=== PATIENT | female | born 1980 | race Caucasian/White ===

== ENCOUNTER → 2018-08-17 | Emergency (ER) | payer BC ==
[~2018-08-17] VITALS: Ht 157.5 cm; Wt 127.0 kg
[~2018-08-17] MED LIST: AMLO10TA PO; CPR500T PO; DOCU100C37 PO; HYDR-34 PO; HYDR-4226 PO; HYDR2TAB30 PO; HYDROcodone/APAP 5 MG/325 MG (LORTAB) TAB PO ONE; IBUP-1773 PO; LEVO500T2 PO; LISI10TA2 PO; ONDA4TAB8 PO; OXYC1TAB87 PO; PHEN-826 PO; PHEN100T17 PO; SIME80TA16 PO; SPIR50TA27 PO; amLODIPine 10 MG (NORVASC) TAB PO ONE
--- NOTE | 2018-08-17 15:03 | ED Lower Extremity ---
General Chief Complaint: Lower Extremity Stated Complaint: LFT ANKLE PAIN Nursing Triage Note: pt missed a step going down the stairs and fell et her left ankle twisted and is very painful, swelling noted. Nursing Sepsis Screen: No Definite Risk Source: patient Exam Limitations: no limitations History of Present Illness Date Seen by Provider: Aug 17, 2018 Time Seen by Provider: 15:01 Initial Comments To ER with reports of having missed a step going down the stairs, twisted her ankle and now has swelling and significant pain over the lateral malleolus. This occurred just prior to arrival. She is quite hypertensive on arrival but has not had her daily blood pressure medications yet. Onset: just prior to arrival Severity: moderate Pain/Injury Location: left ankle Method of Injury: fell Modifying Factors: Worse With Movement Allergies and Home Medications Allergies Coded Allergies: codeine (Verified Allergy, Unknown, 10/08/07) Home Medications Amlodipine Besylate 10 Mg Tablet, 10 MG PO DAILY, (Reported) Docusate Sodium 100 Mg Capsule, 100 MG PO BID PRN for CONSTIPATION Prescribed by: ED CHOWDHURY on 01/06/15 1608 Hydromorphone HCl 2 Mg Tablet, 2 MG PO Q6H Prescribed by: CORAZON SÁNCHEZ on 01/18/15 1238 Ibuprofen 600 Mg Tablet, 600 MG PO Q6H PRN for PAIN Prescribed by: ED CHOWDHURY on 01/06/15 1608 Levofloxacin 500 Mg Tablet, 500 MG PO DAILY Prescribed by: CORAZON SÁNCHEZ on 01/18/15 1028 Lisinopril 10 Mg Tablet, 10 MG PO DAILY, (Reported) Ondansetron 4 Mg Tab.rapdis, 4 MG PO TID Prescribed by: CORAZON SÁNCHEZ on 01/18/15 1255 Phenazopyridine HCl 100 Mg Tablet, 100 MG PO TIDPC Prescribed by: CORAZON SÁNCHEZ on 01/18/15 1028 Simethicone 80 Mg Tab.chew, 40 MG PO TID PRN for INDIGESTION Prescribed by: ED CHOWDHURY on 01/06/15 1608 Spironolactone 50 Mg Tablet, 50 MG PO DAILY, (Reported) Patient Home Medication List Home Medication List Reviewed: Yes Review of Systems Constitutional: see HPI EENTM: see HPI Respiratory: no symptoms reported Cardiovascular: no symptoms reported Genitourinary: no symptoms reported Musculoskeletal: see HPI Skin: no symptoms reported Psychiatric/Neurological: No Symptoms Reported Past Rvtsamt-Tccyaq-Uhywtd Hx Patient Social History Alcohol Use: Denies Use Recreational Drug Use: No Type Used: Cigarettes Recent Foreign Travel: No Contact w/Someone Who Travel: No Recent Infectious Disease Expo: No Immunizations Up To Date Tetanus Booster (TDap): More than 5yrs Past Medical History Surgeries: Yes (KNEE SCOPE, ) Hysterectomy Respiratory: No Cardiac: No Neurological: No Reproductive Disorders: No (AUB) Sexually Transmitted Disease: No HIV/AIDS: No Gastrointestinal: No Musculoskeletal: No Endocrine: No Cancer: No Psychosocial: No Integumentary: No Blood Disorders: No Adverse Reaction/Blood Tranf: No Family Medical History Asthma G8 BROTHER Cataracts GRANDPARENTS Diabetes mellitus GRANDPARENTS FH: cancer GRANDPARENTS (LIVER, BREAST CA) Hypertension 19 MOTHER Heart Disease, Cancer Physical Exam Vital Signs Vital Signs - First Documented 08/17/18 14:49 Temp 98.1 Pulse 93 Resp 20 B/P (MAP) 236/136 (169) Pulse Ox 100 Capillary Refill : Less Than 3 Seconds Height, Weight, BMI Height: 5'2.00" Weight: 280lbs. 0.0oz. 127.351018ma; BMI Method:Stated General Appearance: WD/WN, no apparent distress HEENT: PERRL/EOMI, normal ENT inspection Neck: non-tender, full range of motion Respiratory: no respiratory distress, no accessory muscle use Hips: bilateral hip non-tender, bilateral hip normal inspection, bilateral hip normal range of motion Legs: bilateral leg non-tender, bilateral leg normal inspection, bilateral leg normal range of motion Knees: bilateral knee non-tender, bilateral knee normal inspection, bilateral knee normal range of motion Ankles: left ankle pain, left ankle soft tissue tenderness, left ankle swelling Feet: bilateral foot non-tender, bilateral foot normal inspection Neurologic/Psychiatric: alert, normal mood/affect, oriented x 3 Skin: normal color, warm/dry Progress/Results/Core Measures Results/Orders My Orders Orders - CORI STOVALL APRN Hydrocodone/Apap 5/325 Tablet (Lortab 5 (08/17/18 15:00) Amlodipine Tablet (Norvasc Tablet) (08/17/18 15:00) Ankle, Left, 3 Views (08/17/18 14:59) Tibia/Fibula, Left, 2 Views (08/17/18 14:59) Medications Given in ED Current Medications Medications Dose Ordered Sig/June Route Start Time Stop Time Status Last Admin Dose Admin Acetaminophen/ Hydrocodone Bitart 1 tab ONCE ONCE PO 08/17/18 15:00 08/17/18 15:01 DC 08/17/18 15:05 1 TAB Amlodipine Besylate 10 mg ONCE ONCE PO 08/17/18 15:00 08/17/18 15:01 DC 08/17/18 15:05 10 MG Vital Signs/I&O 08/17/18 14:49 Temp 98.1 Pulse 93 Resp 20 B/P (MAP) 236/136 (169) Pulse Ox 100 Blood Pressure Mean: 169 Departure Impression Primary Impression: Avulsion fracture of ankle Qualified Codes: S82.892A - Other fracture of left lower leg, initial encounter for closed fracture Disposition: HOME, SELF-CARE Condition: Stable Departure-Patient Inst. Decision time for Depature: 15:39 Referrals: ALLYSON WALL MD (PCP/Family) Primary Care Physician Patient Instructions: Ankle Fracture, Ankle Sprain (DC) Add. Discharge Instructions: 1. Wear the walking boot until you are released by primary care which would likely be about 2-3 weeks. Elevate as much as possible for the next 48 hours to help reduce swelling and subsequent pain. Wear the walking boot when you're up and about. Pain medication as directed. Ice pack to the area will also help with pain and swelling. All discharge instructions reviewed with patient and/or family. Voiced understanding. Scripts Hydrocodone/Acetaminophen ([place] 5-325 Tablet) 1 Each Tablet 1 EACH PO Q6H PRN for PAIN-MODERATE MDD 10, #14 TAB Prov: CORI STOVALL APRN 08/17/18 Work/School Note: Work Release Form Date Seen in the Emergency Department: Aug 17, 2018 Return to Work: Aug 19, 2018 Other Restrictions Listed Below: Walking boot must be worn while at work until released CORI STOVALL APRN Aug 17, 2018 15:03
[2018-08-17 15:58] VITALS: BP 197/102
--- NOTE | 2018-08-17 16:04 | Diagnostic Imaging Report ---
INDICATION: Injury, ankle pain. EXAMINATION: Left ankle at 3:32 p.m. Three views were obtained. COMPARISON: There are no prior studies available for comparison. FINDINGS: On the AP view there is a small, 1 x 4 mm, avulsion fracture of the tip of the lateral malleolus. There is considerable soft tissue edema in this area as well. No other fracture or acute bony abnormality is noted. The ankle mortise is not widened and the talar dome is smooth. IMPRESSION: 1. There is a small avulsion fracture along the inferior margin of the lateral malleolus. There is also considerable soft tissue edema in this area. 2. There is no acute bony abnormality noted otherwise. Dictated by: Dictated on workstation # [id number]
--- NOTE | 2018-08-17 16:05 | Diagnostic Imaging Report ---
INDICATION: Leg pain. EXAMINATION: Left tibia and fibula. AP and lateral views were obtained. FINDINGS: As noted on the ankle exam performed in conjunction with this study, there is a small avulsion fracture along the inferior margin of the lateral malleolus of the distal tibia. There is considerable soft tissue edema in this area. No other fracture or acute bony abnormality is noted. The knee and ankle joints are fairly well maintained. IMPRESSION: There is a small acute avulsion fracture along the inferior margin of the lateral malleolus of the distal tibia. There is no acute bony abnormality noted otherwise. Dictated by: Dictated on workstation # [id number]
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
== END | disposition home or self-care (01) ==
LOC: EDUNIT# 14:37 → ER 14:39
DX: S82.62XA Displaced fracture of lateral malleolus of left fibula, initial encounter for closed fracture (principal); Z88.5 Allergy status to narcotic agent; Z90.710 Acquired absence of both cervix and uterus; Z80.3 Family history of malignant neoplasm of breast; Z80.0 Family history of malignant neoplasm of digestive organs; W10.8XXA Fall (on) (from) other stairs and steps, initial encounter; X50.1XXA Overexertion from prolonged static or awkward postures, initial encounter
CPT/HCPCS: 73590; 73610

== ENCOUNTER → 2018-09-17 | Outpatient (CLI) | payer BC ==
[~2018-09-17] MED LIST changes: -HYDROcodone/APAP 5 MG/325 MG (LORTAB) TAB PO ONE; -amLODIPine 10 MG (NORVASC) TAB PO ONE
--- NOTE | 2018-09-17 12:58 | Diagnostic Imaging Report ---
EXAMINATION: Left foot. INDICATION: Fibular fracture. Three views were obtained. FINDINGS: The prior exam of 08/17/2018 noted a small avulsion fracture along the inferior aspect of the lateral malleolus. That fracture is not well visualized on this study. There is no fracture, dislocation, or acute bony abnormality of the foot itself. The Lisfranc joint is well maintained. There is a small 5 mm linear metallic foreign body in the soft tissues along the plantar aspect of the proximal phalanx of the great toe. The soft tissues are otherwise unremarkable. IMPRESSION: 1. The fracture of the distal fibula seen previously is not well visualized on this exam. 2. There is no acute bony abnormality of the foot. 3. There is a small linear foreign body along the plantar aspect of the proximal phalanx of the great toe. Dictated by: Dictated on workstation # [id number]
== END ==
LOC: RAD 11:03
PROVIDERS: ATTEND Nurse Practitioner Family
DX: S90.452A Superficial foreign body, left great toe, initial encounter (principal)
CPT/HCPCS: 73630

== ENCOUNTER → 2019-02-24 | Outpatient (CLI) | payer BC ==
--- NOTE | 2019-02-24 09:43 | Diagnostic Imaging Report ---
INDICATION: RIGHT UPPER QUADRANT ABDOMINAL PAIN TECHNIQUE: Multiple grayscale sonographic images were obtained of the right upper quadrant of the abdomen. CORRELATION STUDY: None FINDINGS: LIVER: There is uniform echotexture within the visualized portions of the liver. Liver length 18 cm. GALLBLADDER: The gallbladder demonstrates no definitive shadowing gallstones. No abnormal gallbladder wall thickening or pericholecystic fluid. COMMON BILE DUCT: Nondilated at 3 mm. PANCREAS: Visualized portions appearing unremarkable. RIGHT KIDNEY: Measures 12.1 x 4.8 x 6.1 cm. No hydronephrosis. AORTA/IVC: Not well visualized. OTHER: None. IMPRESSION: 1. Negative appearing right upper quadrant abdominal ultrasound. Dictated by: Dictated on workstation # [id number]
== END ==
LOC: RAD 08:46
PROVIDERS: ATTEND Surgery
DX: R10.11 Right upper quadrant pain (principal)
CPT/HCPCS: 76705

== ENCOUNTER 2019-03-01 13:04 | Emergency (ER) | payer BC ==
[~2019-03-01] VITALS: Ht 160 cm; Wt 132.9 kg
--- NOTE | 2019-03-01 13:33 | ED GU-Female ---
General Chief Complaint: Abdominal/GI Problems Stated Complaint: BILAT FLANK PAIN Nursing Triage Note: Pt ambulates to [facility] with C/O right lower abd/flank pain that started a few days ago and has gotten worse. Pt reports she was diagnosed with UTI last week and has been taking Abx for that. Pt states pain was on both sides of abd/flank but has now isolated to the right side. Pt reports taking ibuprofen for the pain. Nursing Sepsis Screen: No Definite Risk Source: patient Exam Limitations: no limitations History of Present Illness Date Seen by Provider: Mar 01, 2019 Time Seen by Provider: 13:32 Initial Comments 38-year-old female patient presents with complaints of right lower abdominal pain radiating into the right flank and right low back. Patient reports being diagnosed with a urinary tract infection at [facility] urgent care 2 weeks ago and was given antibiotics. Patient reports completing the antibiotics, but was told to start a second round of antibiotics earlier this week. Patient denies improvement in symptoms. Denies any urinary symptoms including dysuria, frequency, or hematuria. Per EMR patient also had a gallbladder u/s on 02/24/19 which was negative (ordered by Dr. Sullivan). Timing/Duration: getting worse, other (2 weeks onset, worse in the last 7 days.) Severity/Quality: aching, sharp Location: RLQ Radiation: back, right flank Activities at Onset: none Prior Genitourinary Problems: none Allergies and Home Medications Allergies Coded Allergies: codeine (Verified Allergy, Unknown, 10/08/07) Home Medications Amlodipine Besylate 10 Mg Tablet, 10 MG PO DAILY, (Reported) Docusate Sodium 100 Mg Capsule, 100 MG PO BID PRN for CONSTIPATION Prescribed by: ED CHOWDHURY on 01/06/15 1608 Hydrocodone Bit/Acetaminophen 1 Tab Tab, 1 EACH PO Q6H PRN for PAIN-MODERATE Prescribed by: VILMA RODRIGUEZ on 03/01/19 1537 Hydrocodone/Acetaminophen 1 Each Tablet, 1 EACH PO Q6H PRN for PAIN-MODERATE Prescribed by: CORI STOVALL on 08/17/18 1540 Hydromorphone HCl 2 Mg Tablet, 2 MG PO Q6H Prescribed by: CORAZON SÁNCHEZ on 01/18/15 1238 Ibuprofen 600 Mg Tablet, 600 MG PO Q6H PRN for PAIN Prescribed by: ED CHOWDHURY on 01/06/15 1608 Levofloxacin 500 Mg Tablet, 500 MG PO DAILY Prescribed by: CORAZON SÁNCHEZ on 01/18/15 1028 Lisinopril 10 Mg Tablet, 10 MG PO DAILY, (Reported) Ondansetron 4 Mg Tab.rapdis, 4 MG PO TID Prescribed by: CORAZON SÁNCHEZ on 01/18/15 1255 Phenazopyridine HCl 100 Mg Tablet, 100 MG PO TIDPC Prescribed by: CORAZON SÁNCHEZ on 01/18/15 1028 Phenazopyridine HCl 200 Mg Tablet, 1 TAB PO Q8H PRN for pain Prescribed by: VILMA RODRIGUEZ on 03/01/19 1538 Simethicone 80 Mg Tab.chew, 40 MG PO TID PRN for INDIGESTION Prescribed by: ED CHOWDHURY on 01/06/15 1608 Spironolactone 50 Mg Tablet, 50 MG PO DAILY, (Reported) Patient Home Medication List Home Medication List Reviewed: Yes Review of Systems Review of Systems Constitutional: No chills, No fever; malaise EENTM: no symptoms reported Respiratory: No cough, No phlegm, No short of breath, No wheezing Cardiovascular: No chest pain, No palpitations, No syncope Gastrointestinal: see HPI, abdominal pain (RLQ); No constipation, No diarrhea, No hematemesis, No heartburn, No jaundice, No loss of appetite, No melena, No nausea, No vomiting Genitourinary: see HPI; denies burning, denies discharge, denies dysuria, denies frequency; flank pain (right flank); denies hematuria Musculoskeletal: back pain (right low back pain) Skin: no symptoms reported Psychiatric/Neurological: No Symptoms Reported All Other Systemes Reviewed Negative Unless Noted: Yes (Negative excepted noted.) Past Bdtgkxs-Cdnkax-Bljhel Hx Past Med/Social Hx: Reviewed Nursing Past Med/Soc Hx Patient Social History Alcohol Use: Denies Use Recreational Drug Use: No Type Used: Cigarettes Recent Foreign Travel: No Contact w/Someone Who Travel: No Recent Infectious Disease Expo: No Recent Hopitalizations: No Physical Abuse: No Sexual Abuse: No Mistreated: No Fear: No Immunizations Up To Date Tetanus Booster (TDap): More than 5yrs Seasonal Allergies Seasonal Allergies: No Past Medical History Surgeries: Yes (KNEE SCOPE, ) Section, Hysterectomy Respiratory: No Cardiac: Yes Hypertension Neurological: No Reproductive Disorders: No (AUB) [employer]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 Sexually Transmitted Disease: No HIV/AIDS: No Genitourinary: No Gastrointestinal: No Musculoskeletal: No Endocrine: No Cancer: No Psychosocial: No Integumentary: No Blood Disorders: No Adverse Reaction/Blood Tranf: No Family Medical History Reviewed Nursing Family Hx Asthma G8 BROTHER Cataracts GRANDPARENTS Diabetes mellitus GRANDPARENTS FH: cancer GRANDPARENTS (LIVER, BREAST CA) Hypertension 19 MOTHER Heart Disease, Cancer Physical Exam Vital Signs Vital Signs - First Documented 03/01/19 13:10 Temp 36.9 Pulse 95 Resp 18 B/P (MAP) 186/106 (132) Pulse Ox 99 O2 Delivery Room Air Capillary Refill : Less Than 3 Seconds Height, Weight, BMI Height: 5'2.00" Weight: 280lbs. 0.0oz. [id number]; 51.00 BMI Method:Stated General Appearance: WD/WN, no apparent distress HEENT: PERRL/EOMI, pharynx normal Neck: supple, normal inspection Cardiovascular: normal peripheral pulses, regular rate, rhythm, no edema, no gallop, no murmur Respiratory: lungs clear, normal breath sounds, no respiratory distress, no accessory muscle use Gastrointestinal: normal bowel sounds, soft, no organomegaly, no pulsatile mass; No distended; guarding (right lower quadrant and right flank); No rebound; tenderness (right lower quadrant and right flank) Back: normal inspection, CVA tenderness (R) (weak positive CVA tenderness), CVA tenderness (L) (weak positive CVA tenderness) Extremities: no pedal edema, no calf tenderness, normal capillary refill Neurologic/Psychiatric: alert, normal mood/affect, oriented x 3 Skin: normal color, warm/dry Progress/Results/Core Measures Suspected Sepsis Recent Fever Within 48 Hours: No Infection Criteria Present: None New/Unexplained Altered Menta: No Sepsis Screen: No Definite Risk SIRS Temperature: Pulse: 95 Respiratory Rate: 18 Laboratory Tests 03/01/19 13:26: White Blood Count 14.6H Blood Pressure 186 /106 Mean: 132 Laboratory Tests 03/01/19 13:26: Creatinine 1.00, Platelet Count 300, Total Bilirubin 0.6 Results/Orders Lab Results Laboratory Tests Test 03/01/19 13:26 Range/Units White Blood Count 14.6 H 4.3-11.0 10^3/uL Red Blood Count 4.65 4.35-5.85 10^6/uL Hemoglobin 15.0 11.5-16.0 G/DL Hematocrit 43 35-52 % Mean Corpuscular Volume 93 80-99 FL Mean Corpuscular Hemoglobin 32 25-34 PG Mean Corpuscular Hemoglobin Concent 35 32-36 G/DL Red Cell Distribution Width 13.9 10.0-14.5 % Platelet Count 300 130-400 10^3/uL Mean Platelet Volume 10.7 H 7.4-10.4 FL Neutrophils (%) (Auto) 64 42-75 % Lymphocytes (%) (Auto) 28 12-44 % Monocytes (%) (Auto) 6 0-12 % Eosinophils (%) (Auto) 1 0-10 % Basophils (%) (Auto) 0 0-10 % Neutrophils # (Auto) 9.4 H 1.8-7.8 X 10^3 Lymphocytes # (Auto) 4.1 H 1.0-4.0 X 10^3 Monocytes # (Auto) 0.8 0.0-1.0 X 10^3 Eosinophils # (Auto) 0.2 0.0-0.3 10^3/uL Basophils # (Auto) 0.1 0.0-0.1 10^3/uL Neutrophils % (Manual) 66 % Lymphocytes % (Manual) 31 % Monocytes % (Manual) 3 % Blood Morphology Comment NORMAL Urine Color YELLOW Urine Clarity SLIGHTLY CLOUDY Urine pH 6 5-9 Urine Specific Pelican 1.010 L 1.016-1.022 Urine Protein 2+ H NEGATIVE Urine Glucose (UA) NEGATIVE NEGATIVE Urine Ketones NEGATIVE NEGATIVE Urine Nitrite POSITIVE H NEGATIVE Urine Bilirubin 1+ H NEGATIVE Urine Urobilinogen 1 NORMAL MG/DL Urine Leukocyte Esterase 1+ H NEGATIVE Urine RBC (Auto) 1+ H NEGATIVE Urine RBC 2-5 H /HPF Urine WBC 2-5 /HPF Urine Squamous Epithelial Cells 25-50 H /HPF Urine Crystals NONE /LPF Urine Bacteria FEW H /HPF Urine Casts NONE /LPF Urine Mucus NEGATIVE /LPF Urine Culture Indicated YES Sodium Level 137 135-145 MMOL/L Potassium Level 3.5 L 3.6-5.0 MMOL/L Chloride Level 101 98-107 MMOL/L Carbon Dioxide Level 27 21-32 MMOL/L Anion Gap 9 5-14 MMOL/L Blood Urea Nitrogen 13 7-18 MG/DL Creatinine 1.00 0.60-1.30 MG/DL Estimat Glomerular Filtration Rate > 60 BUN/Creatinine Ratio 13 Glucose Level 100 70-105 MG/DL Calcium Level 9.4 8.5-10.1 MG/DL Corrected Calcium 9.2 8.5-10.1 MG/DL Total Bilirubin 0.6 0.1-1.0 MG/DL Aspartate Amino Transf (AST/SGOT) 21 5-34 U/L Alanine Aminotransferase (ALT/SGPT) 38 0-55 U/L Alkaline Phosphatase 87 40-136 U/L C-Reactive Protein High Sensitivity 0.27 0.00-0.50 MG/DL Total Protein 7.4 6.4-8.2 GM/DL Albumin 4.3 3.2-4.5 GM/DL Lipase 14 8-78 U/L My Orders Orders - VILMA RODRIGUEZ Ed Iv/Invasive Line Start (03/01/19 13:19) Cbc With Automated Diff (03/01/19 13:19) Comprehensive Metabolic Panel (03/01/19 13:19) Hs C Reactive Protein (03/01/19 13:19) Lipase (03/01/19 13:19) Ua Culture If Indicated (03/01/19 13:19) Manual Differential (03/01/19 13:26) Urine Culture (03/01/19 13:26) Ct Abd/Pelvis Wo(Kidney Stone) (03/01/19 13:57) Ed Iv/Invasive Line Start (03/01/19 13:57) Ns Iv 1000 Ml (Sodium Chloride 0.9%) (03/01/19 13:57) Fentanyl Injection (Sublimaze Injection (03/01/19 13:57) Ceftriaxone For Iv Use (Rocephin For I (03/01/19 15:00) Fentanyl Injection (Sublimaze Injection (03/01/19 15:04) Medications Given in ED Current Medications Medications Dose Ordered Sig/June Route Start Time Stop Time Status Last Admin Dose Admin Ceftriaxone Sodium 1000 mg/ Sterile Water 10 ml @ 200 mls/hr ONCE ONCE IV 03/01/19 15:00 03/01/19 15:02 DC 03/01/19 15:04 200 MLS/HR Sodium Chloride 1,000 ml @ 0 mls/hr Q0M ONCE IV 03/01/19 13:57 03/01/19 14:01 DC 03/01/19 14:07 0 MLS/HR Vital Signs/I&O 03/01/19 03/01/19 13:10 15:48 Temp 36.9 36.9 Pulse 95 95 Resp 18 18 B/P (MAP) 186/106 (132) 173/100 (132) Pulse Ox 99 99 O2 Delivery Room Air Room Air Capillary Refill : Less Than 3 Seconds Blood Pressure Mean: 132 Diagnostic Imaging Diagonstic Imaging: CT Plain Films/CT/US/NM/MRI: abdomen, pelvis Comments Date of Exam:03/01/19 CT ABD/PELVIS WO(KIDNEY STONE) PROCEDURE: CT urinary tract, rule out kidney stone. TECHNIQUE: Multiple contiguous axial images were obtained through the abdomen and pelvis without the use of intravenous contrast. Auto Exposure Controls were utilized during the CT exam to meet ALARA standards for radiation dose reduction. INDICATION: Flank pain. Abdominal pain. History of kidney stones. COMPARISON the prior CT study from 01/16/2015. FINDINGS: The visualized lung bases appear clear. There is no infiltrate or effusion or evidence of a pulmonary nodule. The liver demonstrates no noncontrast evidence of a focal intrahepatic abnormality. The gallbladder is contracted. There are no radiodense gallstones. There is no biliary dilatation. The pancreas and spleen are normal. There is no adrenal mass. Kidneys appear nonobstructed. There are tiny punctate stones within the lower calyces of the left kidney. There is no evidence of a stone within the ureters or within the urinary bladder. There is minimal fat stranding along the left ureter which may relate to urinary tract infection or recently passed stone. Small and large bowel are normal in caliber without evidence of obstruction. There are no findings of abnormal bowel thickening. There is moderate stool within the colon. The appendix is normal. There is no free air, free fluid or abscess. The patient is status post hysterectomy. Urinary bladder unremarkable. Ovaries unremarkable. There is no pelvic mass. There are no pathologically enlarged lymph nodes. Aorta normal in caliber. No acute or suspicious osseous abnormality. IMPRESSION: 1. No current CT evidence of hydronephrosis or evidence of a radiodense stone within the collecting system. There are punctate nonobstructive stones in the lower calyces of the left kidney. Some minimal fat stranding along the left ureter which could relate to recently passed stone or urinary tract infection. Dictated by: Dictated on workstation # [id number] Reviewed: Reviewed by Me (radiology report reviewed by me) Departure Communication (Admissions) Patient seen and evaluated. Initial labs obtained. CT abdomen and pelvis obtained. Patient was given fentanyl 50 g IV 1 dose and 1 L of normal saline. All laboratory and diagnostic findings discussed with the patient. Patient states she is supposed to follow-up with Dr. Sullivan to schedule an outpatient hepatobiliary scan to further evaluate the gallbladder. Have instructed patient to contact his office for appointment time. Patient follow-up with her primary care provider for recheck as outpatient this week. She will return immediately to the emergency department for worsened symptoms or any other concerns. Impression Primary Impression: Urinary tract infection Qualified Codes: N30.01 - Acute cystitis with hematuria Additional Impression: Renal colic on right side Disposition: HOME, SELF-CARE Condition: Improved Departure-Patient Inst. Decision time for Depature: 14:58 Referrals: ALLYSON WALL MD (PCP/Family) Primary Care Physician Patient Instructions: Renal Colic (DC), Urinary Tract Infection, Adult (DC) Add. Discharge Instructions: All discharge instructions reviewed with patient and/or family. Voiced understanding. Medications as instructed. Drink plenty of fluids. Tylenol Extra Strength [id number] as directed for pain. Ibuprofen 800 mg by mouth every 8 hours as needed for pain. Follow-up with your family practitioner for recheck early this week, call for an appointment time tomorrow morning. Return to the emergency department for worsened symptoms, fever, difficulty with urination, blood in the urine, vomiting, or any other concerns. Scripts Phenazopyridine HCl (Pyridium) 200 Mg Tablet 1 TAB PO Q8H PRN for pain, #20 TAB 0 Refills Prov: VILMA RODRIGUEZ 03/01/19 Hydrocodone Bit/Acetaminophen (Hydrocodone/Acetaminophen 5/325mg Tablet) 1 Tab Tab 1 EACH PO Q6H PRN for PAIN-MODERATE MDD 10, #10 TAB 0 Refills Prov: VILMA RODRIGUEZ 03/01/19 Copy Copies To 1: ALLYSON WALL MD, GRETCHEN L PA Mar 01, 2019 13:32
[2019-03-01 13:37] LABS: BASOPHILS # (AUTO) 0.1 10^3/uL (0.0-0.1); BASOPHILS % (AUTO) 0 % (0-10); EOSINOPHILS # (AUTO) 0.2 10^3/uL (0.0-0.3); EOSINOPHILS % (AUTO) 1 % (0-10); HEMATOCRIT 43 % (35-52); LYMPHOCYTES # (AUTO) 4.1 X 10^3 (1.0-4.0); LYMPHOCYTES % (AUTO) 28 % (12-44); MEAN CORPUSCULAR HEMOGLOBIN 32 PG (25-34); MEAN CORPUSCULAR HGB CONC 35 G/DL (32-36); MEAN CORPUSCULAR VOLUME 93 FL (80-99); MEAN PLATELET VOLUME 10.7 FL (7.4-10.4); MONOCYTES # (AUTO) 0.8 X 10^3 (0.0-1.0); MONOCYTES % (AUTO) 6 % (0-12); NEUTROPHILS # (AUTO) 9.4 X 10^3 (1.8-7.8); NEUTROPHILS % (AUTO) 64 % (42-75); PLATELET COUNT 300 10^3/uL (130-400); RED CELL DISTRIBUTION WIDTH 13.9 % (10.0-14.5); WHITE BLOOD COUNT 14.6 10^3/uL (4.3-11.0)
[2019-03-01 13:38] LABS: CLARITY,URINE SLIGHTLY CLOUDY; COLOR,URINE YELLOW; GLUCOSE, URINE (UA) NEGATIVE (NEGATIVE); KETONES,URINE NEGATIVE (NEGATIVE); LEUKOCYTE ESTERASE ,URINE 1+ (NEGATIVE); NITRITE,URINE POSITIVE (NEGATIVE); PH,URINE 6 (5-9); PROTEIN,URINE 2+ (NEGATIVE)
[2019-03-01 13:49] LABS: BACTERIA,URINE FEW /HPF; BILIRUBIN,URINE 1+ (NEGATIVE); SQUAMOUS EPITHELIAL CELL,UR 25-50 /HPF
[2019-03-01 13:57] LABS: ALANINE AMINOTRANSFERASE 38 U/L (0-55); ALBUMIN 4.3 GM/DL (3.2-4.5); ALKALINE PHOSPHATASE 87 U/L (40-136); BILIRUBIN,TOTAL 0.6 MG/DL (0.1-1.0); BUN/CREATININE RATIO 13; CALCIUM 9.4 MG/DL (8.5-10.1); CARBON DIOXIDE 27 MMOL/L (21-32); CHLORIDE 101 MMOL/L (98-107); GFR ESTIMATED > 60; GLUCOSE 100 MG/DL (70-105); LIPASE 14 U/L (8-78); POTASSIUM 3.5 MMOL/L (3.6-5.0); SODIUM 137 MMOL/L (135-145); TOTAL PROTEIN 7.4 GM/DL (6.4-8.2)
[2019-03-01] MEDS ORDERED: fentaNYL INJECTION 100 MCG/2 ML AMP IVP STA ×2 (13:57→15:04)
[2019-03-01] MEDS ORDERED: NS IV 1000 ML 1,000 ML IV ONE (13:57)
[2019-03-01 14:16] LABS: LYMPHOCYTES % (MANUAL) 31 %; MONOCYTES % (MANUAL) 3 %; NEUTROPHILS % (MANUAL) 66 %; RBC MORPH NORMAL
--- NOTE | 2019-03-01 14:48 | Diagnostic Imaging Report ---
PROCEDURE: CT urinary tract, rule out kidney stone. TECHNIQUE: Multiple contiguous axial images were obtained through the abdomen and pelvis without the use of intravenous contrast. Auto Exposure Controls were utilized during the CT exam to meet ALARA standards for radiation dose reduction. INDICATION: Flank pain. Abdominal pain. History of kidney stones. COMPARISON the prior CT study from 01/16/2015. FINDINGS: The visualized lung bases appear clear. There is no infiltrate or effusion or evidence of a pulmonary nodule. The liver demonstrates no noncontrast evidence of a focal intrahepatic abnormality. The gallbladder is contracted. There are no radiodense gallstones. There is no biliary dilatation. The pancreas and spleen are normal. There is no adrenal mass. Kidneys appear nonobstructed. There are tiny punctate stones within the lower calyces of the left kidney. There is no evidence of a stone within the ureters or within the urinary bladder. There is minimal fat stranding along the left ureter which may relate to urinary tract infection or recently passed stone. Small and large bowel are normal in caliber without evidence of obstruction. There are no findings of abnormal bowel thickening. There is moderate stool within the colon. The appendix is normal. There is no free air, free fluid or abscess. The patient is status post hysterectomy. Urinary bladder unremarkable. Ovaries unremarkable. There is no pelvic mass. There are no pathologically enlarged lymph nodes. Aorta normal in caliber. No acute or suspicious osseous abnormality. IMPRESSION: 1. No current CT evidence of hydronephrosis or evidence of a radiodense stone within the collecting system. There are punctate nonobstructive stones in the lower calyces of the left kidney. Some minimal fat stranding along the left ureter which could relate to recently passed stone or urinary tract infection. Dictated by: Dictated on workstation # [id number]
[2019-03-01] MEDS ORDERED: cefTRIAXone FOR IV USE 1,000 MG in WATER (STERILE) FOR INJECTION 10 ML IV ONE (15:00)
[2019-03-01] MEDS ORDERED: ACHD5005 PO (15:37)
[2019-03-01] MEDS ORDERED: PHEN-640 PO (15:38)
[2019-03-01 15:48] VITALS: BP 173/100
== END 2019-03-01 15:48 | disposition home or self-care (01) ==
LOC: EDUNIT# 13:04 → ER 13:05
DX: N39.0 Urinary tract infection, site not specified (principal); N23 Unspecified renal colic; I10 Essential (primary) hypertension; Z88.5 Allergy status to narcotic agent; Z90.710 Acquired absence of both cervix and uterus; Z82.49 Family history of ischemic heart disease and other diseases of the circulatory system; Z80.3 Family history of malignant neoplasm of breast; Z80.0 Family history of malignant neoplasm of digestive organs
CPT/HCPCS: 36415; 74176; 80053; 81000; 83690; 85007; 85027; 86141; 87088

== ENCOUNTER → 2019-03-19 | Outpatient (CLI) | payer BC ==
[~2019-03-19] MED LIST changes: +ACHD5005 PO; +PHEN-640 PO
[2019-03-19] MEDS: CATHETER FLUSH 10 ML SYR IV PRN (09:33)
--- NOTE | 2019-03-19 11:46 | Diagnostic Imaging Report ---
HEPATOBILIARY SCAN DATE: March 19, 2019. INDICATION: 38-year-old female, abdominal pain. COMPARISON: CT abdomen and pelvis March 01, 2019. PROCEDURE: 5.5 mCi of Tc-99m choletec was administered intravenously and serial anterior planar images over the liver and upper abdomen were obtained. FINDINGS: There is homogenous activity throughout the liver with good clearance of background activity. This indicates good hepatocellular function. Biliary tree activity is seen at 10 minutes. The gallbladder is seen at 10 minutes. There is no enterogastric reflux. The biliary tree is patent. There is no evidence of acute cholecystitis. CCK was administered. Gallbladder ejection fraction was calculated to be 49%. IMPRESSION: Normal hepatobiliary scan. No evidence of acute or chronic cholecystitis. Dictated by: Dictated on workstation # [id number]
== END ==
LOC: CARD 09:21
PROVIDERS: ATTEND Surgery
DX: R10.84 Generalized abdominal pain (principal)
CPT/HCPCS: 78227

== ENCOUNTER 2020-05-26 11:15 | Emergency (ER) | payer BC, OTHER ==
[~2020-05-26] VITALS: Ht 160 cm; Wt 124.7 kg
[2020-05-26 11:22] VITALS: BP 177/105
--- NOTE | 2020-05-26 11:41 | ED Syncope ---
General Chief Complaint: Dizziness/Syncope Stated Complaint: PASSED OUT Nursing Triage Note: PT AMBULATE TO TRIAGE WITH C/O "PASSING OUT" AFTER A DENTIST APPT. PT REPORTS SHE WAS WALKING OUT THE DOOR AFTER HER APPT AND PASSED OUT. PT DENIES HITTING HEAD AND NECK. PT REPORTS RIGHT KNEE PAIN AND THAT SHE BIT HER TONGUE. Source of Information: Patient Exam Limitations: No Limitations History of Present Illness Date Seen by Provider: May 26, 2020 Time Seen by Provider: 11:40 Initial Comments To ER with reports of a syncopal episode. She was at the dentist having part of a tooth removed. She has been laying back in the chair and upon sitting the chair up she started to feel little bit dizzy. She then stood up and grabbed her purse and then collapsed to the floor. EMS was summoned but she declined transport and has no injuries from the fall. She denies any preceding shortness of breath fevers or chills and this is never happened before. She feels back to normal now. She just had part of a tooth removed, no medications including local anesthetics or gases were given. No seizure history. She denies any preceding palpitations. She did vomit a few times this morning. She is on spironolactone, lisinopril, and norvasc. Timing/Prior Episodes: No Prior History Symptoms Prior to Episode: None Loss of Consciousness: Brief (Seconds) Current Symptoms: Back to Normal Allergies and Home Medications Allergies Coded Allergies: codeine (Verified Allergy, Unknown, 10/08/07) Home Medications Amlodipine Besylate 10 Mg Tablet, 10 MG PO DAILY, (Reported) Docusate Sodium 100 Mg Capsule, 100 MG PO BID PRN for CONSTIPATION Prescribed by: ED CHOWDHURY on 01/06/15 1608 Hydrocodone Bit/Acetaminophen 1 Tab Tab, 1 EACH PO Q6H PRN for PAIN-MODERATE Prescribed by: VILMA RODRIGUEZ on 03/01/19 1537 Hydrocodone/Acetaminophen 1 Each Tablet, 1 EACH PO Q6H PRN for PAIN-MODERATE Prescribed by: CORI STOVALL on 08/17/18 1540 Hydromorphone HCl 2 Mg Tablet, 2 MG PO Q6H Prescribed by: CORAZON SÁNCHEZ on 01/18/15 1238 Ibuprofen 600 Mg Tablet, 600 MG PO Q6H PRN for PAIN Prescribed by: ED CHOWDHURY on 01/06/15 1608 Levofloxacin 500 Mg Tablet, 500 MG PO DAILY Prescribed by: CORAZON SÁNCHEZ on 01/18/15 1028 Lisinopril 10 Mg Tablet, 10 MG PO DAILY, (Reported) Ondansetron 4 Mg Tab.rapdis, 4 MG PO TID Prescribed by: CORAZON SÁNCHEZ on 01/18/15 1255 Phenazopyridine HCl 100 Mg Tablet, 100 MG PO TIDPC Prescribed by: CORAZON SÁNCHEZ on 01/18/15 1028 Phenazopyridine HCl 200 Mg Tablet, 1 TAB PO Q8H PRN for pain Prescribed by: VILMA RODRIGUEZ on 03/01/19 1538 Simethicone 80 Mg Tab.chew, 40 MG PO TID PRN for INDIGESTION Prescribed by: ED CHOWDHURY on 01/06/15 1608 Spironolactone 50 Mg Tablet, 50 MG PO DAILY, (Reported) Patient Home Medication List Home Medication List Reviewed: Yes Review of Systems Constitutional: see HPI EENTM: see HPI Respiratory: no symptoms reported Cardiovascular: no symptoms reported Genitourinary: no symptoms reported Musculoskeletal: no symptoms reported Skin: no symptoms reported Psychiatric/Neurological: No Symptoms Reported Past Fcdioqs-Bvaxuw-Vsyili Hx Patient Social History Alcohol Use: Rarely Uses Smoking Status: Current Everyday Smoker Type Used: Cigarettes Recent Infectious Disease Expo: No Recent Hopitalizations: No Immunizations Up To Date Tetanus Booster (TDap): More than 5yrs Seasonal Allergies Seasonal Allergies: No Past Medical History Surgeries: Yes (KNEE SCOPE, ) Section, Hysterectomy Respiratory: No Cardiac: Yes Hypertension Neurological: No Reproductive Disorders: No (AUB) [employer] History: Hysterectomy Sexually Transmitted Disease: No HIV/AIDS: No Genitourinary: No Gastrointestinal: No Musculoskeletal: No Endocrine: No Cancer: No Psychosocial: No Integumentary: No Blood Disorders: No Adverse Reaction/Blood Tranf: No Family Medical History Asthma G8 BROTHER Cataracts GRANDPARENTS Diabetes mellitus GRANDPARENTS FH: cancer GRANDPARENTS (LIVER, BREAST CA) Hypertension 19 MOTHER Heart Disease, Cancer Physical Exam Vital Signs Vital Signs - First Documented 05/26/20 11:22 Temp 36.5 Pulse 89 Resp 17 B/P (MAP) 177/105 (129) O2 Delivery Room Air Capillary Refill : Less Than 3 Seconds Height, Weight, BMI Height: 5'2.00" Weight: 280lbs. 0.0oz. 127.388787lw; 48.00 BMI Method:Stated General Appearance: No Apparent Distress, WD/WN HEENT: PERRL/EOMI, TMs Normal Neck: Full Range of Motion, Normal Inspection Cardiovascular: Regular Rate, Rhythm, Normal Peripheral Pulses Respiratory: No Accessory Muscle Use, No Respiratory Distress Gastrointestinal: Non Tender, Soft Neurologic/Psychiatric: Alert, Oriented x3 Cranial Nerves: Normal Hearing, Normal Speech, PERRL Motor/Sensory: No Motor Deficit, No Sensory Deficit Skin: Normal Color, Warm/Dry Progress/Results/Core Measures Results/Orders Lab Results Laboratory Tests Test 05/26/20 11:35 05/26/20 11:53 Range/Units Urine Color YELLOW Urine Clarity CLEAR Urine pH 6.0 5-9 Urine Specific [place] 1.010 L 1.016-1.022 Urine Protein 2+ H NEGATIVE Urine Glucose (UA) NEGATIVE NEGATIVE Urine Ketones NEGATIVE NEGATIVE Urine Nitrite NEGATIVE NEGATIVE Urine Bilirubin NEGATIVE NEGATIVE Urine Urobilinogen 0.2 < = 1.0 MG/DL Urine Leukocyte Esterase NEGATIVE NEGATIVE Urine RBC (Auto) TRACE-I NEGATIVE Urine RBC RARE /HPF Urine WBC RARE /HPF Urine Squamous Epithelial Cells 5-10 /HPF Urine Crystals NONE /LPF Urine Bacteria NEGATIVE /HPF Urine Casts NONE /LPF Urine Mucus NEGATIVE /LPF Urine Culture Indicated NO White Blood Count 15.4 H 4.3-11.0 10^3/uL Red Blood Count 4.58 3.80-5.11 10^6/uL Hemoglobin 14.5 11.5-16.0 g/dL Hematocrit 42 35-52 % Mean Corpuscular Volume 91 80-99 fL Mean Corpuscular Hemoglobin 32 25-34 pg Mean Corpuscular Hemoglobin Concent 35 32-36 g/dL Red Cell Distribution Width 13.5 10.0-14.5 % Platelet Count 260 130-400 10^3/uL Mean Platelet Volume 11.0 9.0-12.2 fL Immature Granulocyte % (Auto) 1 % Neutrophils (%) (Auto) 76 H 42-75 % Lymphocytes (%) (Auto) 20 12-44 % Monocytes (%) (Auto) 4 0-12 % Eosinophils (%) (Auto) 0 0-10 % Basophils (%) (Auto) 1 0-10 % Neutrophils # (Auto) 11.7 H 1.8-7.8 10^3/uL Lymphocytes # (Auto) 3.0 1.0-4.0 10^3/uL Monocytes # (Auto) 0.5 0.0-1.0 10^3/uL Eosinophils # (Auto) 0.0 0.0-0.3 10^3/uL Basophils # (Auto) 0.1 0.0-0.1 10^3/uL Immature Granulocyte # (Auto) 0.1 0.0-0.1 10^3/uL Neutrophils % (Manual) 67 % Lymphocytes % (Manual) 31 % Monocytes % (Manual) 2 % Eosinophils % (Manual) 0 % Basophils % (Manual) 0 % Band Neutrophils 0 % Blood Morphology Comment NORMAL Sodium Level 135 135-145 MMOL/L Potassium Level 2.8 L 3.6-5.0 MMOL/L Chloride Level 95 L 98-107 MMOL/L Carbon Dioxide Level 28 21-32 MMOL/L Anion Gap 12 5-14 MMOL/L Blood Urea Nitrogen 27 H 7-18 MG/DL Creatinine 1.64 H 0.60-1.30 MG/DL Estimat Glomerular Filtration Rate 35 BUN/Creatinine Ratio 16 Glucose Level 126 H 70-105 MG/DL Calcium Level 9.2 8.5-10.1 MG/DL Corrected Calcium 9.0 8.5-10.1 MG/DL Magnesium Level 1.9 1.6-2.4 MG/DL Total Bilirubin 1.3 H 0.1-1.0 MG/DL Aspartate Amino Transf (AST/SGOT) 21 5-34 U/L Alanine Aminotransferase (ALT/SGPT) 31 0-55 U/L Alkaline Phosphatase 89 40-136 U/L C-Reactive Protein High Sensitivity 0.72 H 0.00-0.50 MG/DL Total Protein 7.5 6.4-8.2 GM/DL Albumin 4.2 3.2-4.5 GM/DL Procalcitonin 0.03 <0.10 NG/ML Serum Test, Qualitative NEGATIVE NEGATIVE My Orders Orders - CORI STOVALL APRN Cbc With Automated Diff (05/26/20 11:31) Comprehensive Metabolic Panel (05/26/20 11:31) Ua Culture If Indicated (05/26/20 11:31) Hcg,Qualitative Serum (05/26/20 11:31) Ekg Tracing (05/26/20 11:31) Manual Differential (05/26/20 11:53) Hs C Reactive Protein (05/26/20 11:53) Procalcitonin (Pct) (05/26/20 11:53) Potassium Chloride (Tablet) (K Dur Table (05/26/20 12:30) Ns Iv 1000 Ml (Sodium Chloride 0.9%) (05/26/20 12:30) Potassium Cl 10meq/50ml Ivpb (Kcl 10 Meq (05/26/20 12:30) Ondansetron Injection (Zofran Injectio (05/26/20 12:30) Us Gallbladder [id number] (05/26/20 12:32) Magnesium (05/26/20 11:53) Ed Iv/Invasive Line Start (05/26/20 12:41) Medications Given in ED Current Medications Medications Dose Ordered Sig/June Route Start Time Stop Time Status Last Admin Dose Admin Ondansetron HCl 8 mg ONCE ONCE IVP 05/26/20 12:30 05/26/20 12:31 DC 05/26/20 12:36 8 MG Potassium Chloride 50 ml @ 50 mls/hr ONCE ONCE IV 05/26/20 12:30 05/26/20 13:29 DC 05/26/20 12:36 50 MLS/HR Vital Signs/I&O 05/26/20 11:22 Temp 36.5 Pulse 89 Resp 17 B/P (MAP) 177/105 (129) O2 Delivery Room Air Blood Pressure Mean: 129 Departure Communication (Admissions) 1400. I spoke with Dr. Johnson, patient received 1 L of IV fluids here with 10 mEq of IV potassium as well as 60 mEq of oral potassium. We will discharged home with oral potassium replacement, Zofran as needed. Stop the lisinopril and switch to Norvasc 5 mg daily given the acute kidney injury. Dr. Johnson will follow up first of next week with the patient. Impression Primary Impression: Hypokalemia Additional Impressions: Nausea & vomiting Syncope Disposition: 01 HOME, SELF-CARE Condition: Improved Departure-Patient Inst. Decision time for Depature: 14:01 Referrals: ALLYSON JOHNSON MD (PCP/Family) Primary Care Physician Patient Instructions: Hypokalemia (DC), Nausea and Vomiting, Adult Add. Discharge Instructions: 1. Return to ER for any concerns 2. Follow-up with your doctor next week 3. Stop your lisinopril. All discharge instructions reviewed with patient and/or family. Voiced understanding. Scripts Ondansetron (Ondansetron Odt) 8 Mg Tab.rapdis 8 MG PO Q6H PRN for NAUSEA/VOMITING, #10 TAB Prov: CORI STOVALL APRN 05/26/20 Potassium Chloride (Potassium Chloride) 20 Meq Tablet.er 20 MEQ PO DAILY, #6 TAB Prov: CORI STOVALL APRN 05/26/20 Copy Copies To 1: ALLYSON JOHNSON MD, PETER J APRN May 26, 2020 11:41
[2020-05-26 11:49] LABS: BILIRUBIN,URINE NEGATIVE (NEGATIVE); CLARITY,URINE CLEAR; COLOR,URINE YELLOW; GLUCOSE, URINE (UA) NEGATIVE (NEGATIVE); KETONES,URINE NEGATIVE (NEGATIVE); LEUKOCYTE ESTERASE ,URINE NEGATIVE (NEGATIVE); NITRITE,URINE NEGATIVE (NEGATIVE); PROTEIN,URINE 2+ (NEGATIVE)
[2020-05-26 11:59] LABS: BASOPHILS # (AUTO) 0.1 10^3/uL (0.0-0.1); BASOPHILS % (AUTO) 1 % (0-10); EOSINOPHILS % (AUTO) 0 % (0-10); HEMATOCRIT 42 % (35-52); HEMOGLOBIN 14.5 g/dL (11.5-16.0); LYMPHOCYTES % (AUTO) 20 % (12-44); MEAN CORPUSCULAR HEMOGLOBIN 32 pg (25-34); MEAN CORPUSCULAR HGB CONC 35 g/dL (32-36); MEAN CORPUSCULAR VOLUME 91 fL (80-99); MONOCYTES # (AUTO) 0.5 10^3/uL (0.0-1.0); MONOCYTES % (AUTO) 4 % (0-12); NEUTROPHILS # (AUTO) 11.7 10^3/uL (1.8-7.8); NEUTROPHILS % (AUTO) 76 % (42-75); PLATELET COUNT 260 10^3/uL (130-400); WHITE BLOOD COUNT 15.4 10^3/uL (4.3-11.0)
[2020-05-26 12:02] LABS: BACTERIA,URINE NEGATIVE /HPF; RBC,URINE RARE /HPF; WBC,URINE RARE /HPF
[2020-05-26 12:16] LABS: ALBUMIN 4.2 GM/DL (3.2-4.5); POTASSIUM 2.8 MMOL/L (3.6-5.0)
[2020-05-26 12:17] LABS: CALCIUM 9.2 MG/DL (8.5-10.1)
[2020-05-26 12:18] LABS: BAND NEUTROPHILS 0 %; BASOPHILS % (MANUAL) 0 %; EOSINOPHILS % (MANUAL) 0 %; LYMPHOCYTES % (MANUAL) 31 %; MONOCYTES % (MANUAL) 2 %; NEUTROPHILS % (MANUAL) 67 %; RBC MORPH NORMAL; TOTAL PROTEIN 7.5 GM/DL (6.4-8.2)
[2020-05-26 12:20] LABS: BILIRUBIN,TOTAL 1.3 MG/DL (0.1-1.0)
[2020-05-26 12:22] LABS: CREATININE SERUM 1.64 MG/DL (0.60-1.30)
[2020-05-26] MEDS ORDERED: POTASSIUM CL 10MEQ/50ML IVPB 50 ML IV ONE (12:30)
[2020-05-26] MEDS ORDERED: KCL 20 MEQ TAB (K-DUR) PO ONE (12:30)
[2020-05-26] MEDS ORDERED: NS IV 1000 ML 1,000 ML IV SCH (12:30)
[2020-05-26] MEDS ORDERED: ONDANSETRON 4 MG/2 ML (SDV) Z0FRAN IVP ONE (12:30)
[2020-05-26 12:45] LABS: MAGNESIUM 1.9 MG/DL (1.6-2.4)
--- NOTE | 2020-05-26 14:01 | Diagnostic Imaging Report ---
PROCEDURE: US Gallbladder. TECHNIQUE: Multiple real-time grayscale images were obtained over the right upper quadrant in various projections. INDICATION: Right upper quadrant abdominal pain. Liver measures 19 cm in length with mild diffuse increased echogenicity. No focal abnormality is identified. Gallbladder has a normal appearance. Pancreas is partially obscured by overlying bowel. No pancreatic, right renal, abdominal aortic or inferior vena caval abnormality is documented. No ascites was noted. IMPRESSION: Mild hepatic steatosis without acute abnormality seen in the right upper quadrant. Dictated by: Dictated on workstation # [id number]
[2020-05-26] MEDS ORDERED: ONDA8TAB13 PO (14:17)
[2020-05-26] MEDS ORDERED: POTA-51 PO (14:17)
== END 2020-05-26 14:57 | disposition home or self-care (01) ==
LOC: EDUNIT# 11:15 → ER 11:17
DX: E87.6 Hypokalemia (principal); R11.2 Nausea with vomiting, unspecified; R55 Syncope and collapse; I10 Essential (primary) hypertension; F17.210 Nicotine dependence, cigarettes, uncomplicated; Z88.5 Allergy status to narcotic agent; Z82.49 Family history of ischemic heart disease and other diseases of the circulatory system; Z83.3 Family history of diabetes mellitus; Z80.3 Family history of malignant neoplasm of breast; Z80.0 Family history of malignant neoplasm of digestive organs
CPT/HCPCS: 36415; 76705; 80053; 81000; 83735; 84145; 84703; 85007; 85027; 86141; 93005

== ENCOUNTER 2020-05-28 20:49 | Inpatient (IN) | payer OTHER ==
[~2020-05-28] VITALS: Ht 160 cm; Wt 127.2 kg
[~2020-05-28 20:49] MED LIST changes: +ONDA8TAB13 PO; +POTA-51 PO
--- NOTE | 2020-05-28 21:28 | ED Syncope ---
General Stated Complaint: HX LOW POTASSIUM/ELEV HR History of Present Illness Date Seen by Provider: May 28, 2020 Time Seen by Provider: 21:12 Initial Comments 39 year old female presents with feeling like she will faint. She had a syncopal event on 05/26/20 and we seen here, with hypokalemia 2.8 and elevated creatinine 1.64. She was started on p.o. potassium and switched from lisinopril to Norvasc 5mg daily, stopped her Spironolactone. She is to follow-up with her primary care provider 05/31/20. She denies chest pain or SOA, no pain or parasthesias to arm, neck or face. She is diaphoretic, no n/v. denies DM. She denies any anxiety or increased stress. She smokes 1/2 pack of cigarettes, daily. She reports 20 lb weight loss, through healthier eating for last 6 months. She denies using supplements or stimulants. B/P has been elevated on other visits 200/110s over last 2 years. Timing/Prior Episodes: Recent History Symptoms Prior to Episode: Lightheadedness, Rapid Heart Rate Precipitating Factors: None Loss of Consciousness: No Loss of Consciousness Current Symptoms: No Blurred Vision, No Chest Pain; Diaphoresis; No Dizziness, No Headache; Lightheadedness; No Loss of Bladder Control, No Loss of Bowel Control, No Motionless, No Nausea, No Shallow/Rapid Breathing, No Weak/Absent Pulse, No Weakness Allergies and Home Medications Allergies Coded Allergies: codeine (Verified Allergy, Unknown, 10/08/07) Home Medications Amlodipine Besylate 10 Mg Tablet, 10 MG PO DAILY, (Reported) Docusate Sodium 100 Mg Capsule, 100 MG PO BID PRN for CONSTIPATION Prescribed by: ED CHOWDHURY on 01/06/15 1608 Hydrocodone Bit/Acetaminophen 1 Tab Tab, 1 EACH PO Q6H PRN for PAIN-MODERATE Prescribed by: VILMA RODRIGUEZ on 03/01/19 1537 Hydrocodone/Acetaminophen 1 Each Tablet, 1 EACH PO Q6H PRN for PAIN-MODERATE Prescribed by: CORI STOVALL on 08/17/18 1540 Hydromorphone HCl 2 Mg Tablet, 2 MG PO Q6H Prescribed by: CORAZON SÁNCHEZ on 01/18/15 1238 Ibuprofen 600 Mg Tablet, 600 MG PO Q6H PRN for PAIN Prescribed by: ED CHOWDHURY on 01/06/15 1608 Levofloxacin 500 Mg Tablet, 500 MG PO DAILY Prescribed by: CORAZON SÁNCHEZ on 01/18/15 1028 Lisinopril 10 Mg Tablet, 10 MG PO DAILY, (Reported) Ondansetron 4 Mg Tab.rapdis, 4 MG PO TID Prescribed by: CORAZON SÁNCHEZ on 01/18/15 1255 Ondansetron 8 Mg Tab.rapdis, 8 MG PO Q6H PRN for NAUSEA/VOMITING Prescribed by: CORI STOVALL on 05/26/20 1417 Phenazopyridine HCl 100 Mg Tablet, 100 MG PO TIDPC Prescribed by: CORAZON SÁNCHEZ on 01/18/15 1028 Phenazopyridine HCl 200 Mg Tablet, 1 TAB PO Q8H PRN for pain Prescribed by: VILMA RODRIGUEZ on 03/01/19 1538 Potassium Chloride 20 Meq Tablet.er, 20 MEQ PO DAILY Prescribed by: CORI STOVALL on 05/26/20 1417 Simethicone 80 Mg Tab.chew, 40 MG PO TID PRN for INDIGESTION Prescribed by: ED CHOWDHURY on 01/06/15 1608 Spironolactone 50 Mg Tablet, 50 MG PO DAILY, (Reported) Patient Home Medication List Home Medication List Reviewed: Yes Review of Systems Constitutional: see HPI, dizziness EENTM: see HPI, no symptoms reported Respiratory: no symptoms reported, see HPI; No dyspnea on exertion, No short of breath Cardiovascular: no symptoms reported, see HPI Gastrointestinal: no symptoms reported Musculoskeletal: no symptoms reported, see HPI Skin: no symptoms reported, see HPI All Other Systems Reviewed Negative Unless Noted: Yes Past Nxyoykf-Czauam-Gfwoih Hx Past Med/Social Hx: Reviewed Nursing Past Med/Soc Hx Patient Social History Alcohol Use: Occasionally Uses Type Used: Cigarettes (1/2 pack/daily) Recent Hopitalizations: No Immunizations Up To Date Tetanus Booster (TDap): More than 5yrs Seasonal Allergies Seasonal Allergies: No Past Medical History Surgeries: Yes (KNEE SCOPE, ) Section, Hysterectomy Respiratory: No Cardiac: Yes Hypertension Neurological: No Reproductive Disorders: No (AUB) [employer] History: Hysterectomy Sexually Transmitted Disease: No HIV/AIDS: No Genitourinary: No Gastrointestinal: No Musculoskeletal: No Endocrine: No Cancer: No Psychosocial: No Integumentary: No Blood Disorders: No Adverse Reaction/Blood Tranf: No Family Medical History Asthma G8 BROTHER Cataracts GRANDPARENTS Diabetes mellitus GRANDPARENTS FH: cancer GRANDPARENTS (LIVER, BREAST CA) Hypertension 19 MOTHER Heart Disease, Cancer Physical Exam Vital Signs Vital Signs - First Documented 05/28/20 21:05 Temp 37.1 Pulse 105 Resp 20 B/P (MAP) 256/145 (182) Pulse Ox 97 O2 Delivery Room Air Capillary Refill : Height, Weight, BMI Height: 5'2.00" Weight: 280lbs. 0.0oz. 127.379643to; 48.00 BMI Method:Stated General Appearance: Mild Distress HEENT: PERRL/EOMI, TMs Normal, Normal ENT Inspection, Pharynx Normal Neck: Full Range of Motion, Normal Inspection, Non Tender, Supple Cardiovascular: Normal Peripheral Pulses, Tachycardia Respiratory: Chest Non Tender, Lungs Clear, Normal Breath Sounds Gastrointestinal: Normal Bowel Sounds, Non Tender, Soft Extremities: Normal Capillary Refill, Normal Inspection, Normal Range of Motion , No Calf Tenderness Neurologic/Psychiatric: Alert, Oriented x3, No Motor/Sensory Deficits, Normal Mood/Affect Cranial Nerves: Normal Hearing, Normal Speech, PERRL Coordination/Gait: Normal Gait Skin: Normal Color, Diaphoresis Progress/Results/Core Measures Results/Orders Lab Results Laboratory Tests Test 05/28/20 21:20 05/28/20 22:05 05/28/20 22:25 05/28/20 23:15 Range/Units White Blood Count 14.3 H 4.3-11.0 10^3/uL Red Blood Count 4.17 3.80-5.11 10^6/uL Hemoglobin 13.2 11.5-16.0 g/dL Hematocrit 40 35-52 % Mean Corpuscular Volume 95 80-99 fL Mean Corpuscular Hemoglobin 32 25-34 pg Mean Corpuscular Hemoglobin Concent 33 32-36 g/dL Red Cell Distribution Width 13.9 10.0-14.5 % Platelet Count 252 130-400 10^3/uL Mean Platelet Volume 10.7 9.0-12.2 fL Immature Granulocyte % (Auto) 0 % Neutrophils (%) (Auto) 62 42-75 % Lymphocytes (%) (Auto) 31 12-44 % Monocytes (%) (Auto) 5 0-12 % Eosinophils (%) (Auto) 1 0-10 % Basophils (%) (Auto) 0 0-10 % Neutrophils # (Auto) 8.9 H 1.8-7.8 10^3/uL Lymphocytes # (Auto) 4.5 H 1.0-4.0 10^3/uL Monocytes # (Auto) 0.7 0.0-1.0 10^3/uL Eosinophils # (Auto) 0.2 0.0-0.3 10^3/uL Basophils # (Auto) 0.1 0.0-0.1 10^3/uL Immature Granulocyte # (Auto) 0.1 0.0-0.1 10^3/uL Neutrophils % (Manual) 64 % Lymphocytes % (Manual) 28 % Monocytes % (Manual) 6 % Eosinophils % (Manual) 2 % Blood Morphology Comment NORMAL Prothrombin Time 11.8 L 12.2-14.7 SEC INR Comment 0.8 0.8-1.4 Activated Partial Thromboplast Time 27 24-35 SEC D-Dimer 0.86 H 0.00-0.49 UG/ML Sodium Level 137 135-145 MMOL/L Potassium Level 4.2 3.6-5.0 MMOL/L Chloride Level 101 98-107 MMOL/L Carbon Dioxide Level 25 21-32 MMOL/L Anion Gap 11 5-14 MMOL/L Blood Urea Nitrogen 25 H 7-18 MG/DL Creatinine 1.43 H 0.60-1.30 MG/DL Estimat Glomerular Filtration Rate 40 BUN/Creatinine Ratio 17 Glucose Level 97 70-105 MG/DL Calcium Level 9.2 8.5-10.1 MG/DL Corrected Calcium 9.2 8.5-10.1 MG/DL Magnesium Level 1.9 1.6-2.4 MG/DL Total Bilirubin 0.7 0.1-1.0 MG/DL Aspartate Amino Transf (AST/SGOT) 29 5-34 U/L Alanine Aminotransferase (ALT/SGPT) 46 0-55 U/L Alkaline Phosphatase 75 40-136 U/L Lactate Dehydrogenase 343 H 125-220 U/L Myoglobin 87.5 10.0-92.0 NG/ML Troponin I 0.634 *H <0.028 NG/ML C-Reactive Protein High Sensitivity 0.52 H 0.00-0.50 MG/DL Total Protein 7.2 6.4-8.2 GM/DL Albumin 4.0 3.2-4.5 GM/DL Procalcitonin 0.02 <0.10 NG/ML TSH Ada Testing 1.33 0.35-4.94 UIU/ML Urine Color YELLOW Urine Clarity CLEAR Urine pH 6.0 5-9 Urine Specific Mercedes <=1.005 1.016-1.022 Urine Protein NEGATIVE NEGATIVE Urine Glucose (UA) NEGATIVE NEGATIVE Urine Ketones NEGATIVE NEGATIVE Urine Nitrite NEGATIVE NEGATIVE Urine Bilirubin NEGATIVE NEGATIVE Urine Urobilinogen 0.2 < = 1.0 MG/DL Urine Leukocyte Esterase NEGATIVE NEGATIVE Urine RBC (Auto) TRACE-I NEGATIVE Urine RBC RARE /HPF Urine WBC NONE /HPF Urine Squamous Epithelial Cells 0-2 /HPF Urine Crystals NONE /LPF Urine Bacteria NEGATIVE /HPF Urine Casts NONE /LPF Urine Mucus NEGATIVE /LPF Urine Culture Indicated NO Coronavirus 2019 (JOAO) Negative Negative My Orders Orders - RACHID VARNER Cbc With Automated Diff (05/28/20 20:56) Comprehensive Metabolic Panel (05/28/20 20:56) Thyroid Analyzer (05/28/20 21:20) Troponin I (05/28/20 21:20) Chest 1 View, Ap/Pa Only (05/28/20 21:20) Ekg Tracing (05/28/20 21:20) Protime With Inr (05/28/20 21:20) Partial Thromboplastin Time (05/28/20 21:20) O2 (05/28/20 21:20) Monitor-Rhythm Ecg Trace Only (05/28/20 21:20) Ed Iv/Invasive Line Start (05/28/20 21:20) Aspirin Chewable Tablet (Baby Aspirin Ch (05/28/20 21:30) Diltiazem Injection (Cardizem Injection) (05/28/20 21:30) Ed Iv/Invasive Line Start (05/28/20 21:33) Ns Iv 500 Ml (Sodium Chloride 0.9%) (05/28/20 21:45) Manual Differential (05/28/20 21:20) Magnesium (05/28/20 21:20) Myoglobin Serum (05/28/20 21:20) Ua Culture If Indicated (05/28/20 21:50) Hydralazine Injection (Apresoline Inject (05/28/20 22:15) Hs C Reactive Protein (05/28/20 22:12) Covid 19 Inhouse Test (05/28/20 22:24) Fibrin Degradation Products (05/28/20 22:24) Procalcitonin (Pct) (05/28/20 22:24) LDH (05/28/20 22:24) Nitro Drip 59637 Mcg/D5w (Nitroglycerin (05/28/20 22:45) Clopidogrel Tablet (Plavix Tablet) (05/28/20 23:00) Coronavirus Sars-Cov-2 So 2018 (05/28/20 23:01) Ed Iv/Invasive Line Start (05/28/20 23:02) Ns Iv 1000 Ml (Sodium Chloride 0.9%) (05/28/20 23:15) Lorazepam Injection (Ativan Injection) (05/28/20 23:15) Nitro Drip 94242 Mcg/D5w (Nitroglycerin (05/28/20 23:16) Medications Given in ED Current Medications Medications Dose Ordered Sig/June Route Start Time Stop Time Status Last Admin Dose Admin Aspirin 324 mg ONCE ONCE PO 05/28/20 21:30 05/28/20 21:31 DC 05/28/20 21:32 324 MG Clopidogrel Bisulfate 300 mg ONCE ONCE PO 05/28/20 23:00 05/28/20 23:01 DC 05/28/20 23:03 300 MG Diltiazem HCl 10 mg ONCE ONCE IVP 05/28/20 21:30 05/28/20 21:31 DC 05/28/20 21:33 10 MG Hydralazine HCl 10 mg ONCE ONCE IV 05/28/20 22:15 05/28/20 22:16 DC 05/28/20 22:11 10 MG Sodium Chloride 500 ml @ 0 mls/hr Q0M ONCE IV 05/28/20 21:45 05/28/20 21:46 DC 05/28/20 21:51 999 MLS/HR Vital Signs/I&O 05/28/20 05/28/20 21:05 22:54 Temp 37.1 Pulse 105 93 Resp 20 B/P (MAP) 256/145 (182) 241/142 Pulse Ox 97 O2 Delivery Room Air Progress Progress Note : Time: 21:12 Progress Note Patient seen and evaluated, will obtain EKG, labs, Aspirin 324 mg orally, diltiazem 10 mg IV for blood pressure. And monitor patient. Denies pain or SOA. 2129 blood pressure 209/122. Patient less diaphoretic.K+ 4.2, Creatinine 1.43. Will give NS 500ml. Hydralazine 10 mg IV. 2199 Troponin 0.634. [address] Vincent, will admit to ICU, start Nitro Drip, Plavix 300 mg orally. B/P 240/136. Plan Echo in am and serial Troponins. She may have light breakfast, then NPO. [address] Pelletier, agreed to admit patient. 2299 B/P 246/136 Nitro gtt started at 10 mcg/min, titrate 5 mcg/min to SBP 170, Max 30 mcg/min. Rapid COVID-19 Neg, will complete PCR. 2324 B/P 230/132, Nitro increased to 15 mcg/min. Patient denies SOA or chest pain. Initial ECG Impression Date: May 28, 2020 Initial ECG Impression Time: 21:23 Initial ECG Rate: 102 Initial ECG Rhythm: S.Tach Initial ECG Intervals: Normal Initial ECG Intervals WA 172, QRSD 94, QT 364, QTc 475. [place] P 38, QRS -16, T 124. Initial ECG Impression: Normal Initial ECG Comparisson: Unchanged Comment Reviewed with Dr. Carlin, agreed with interpretation Diagnostic Imaging Diagonstic Imaging: Xray Plain Films/CT/US/NM/MRI: chest Comments NAME: SHERMAN PRESSLEY [facility] REC#: [id number] PT STATUS: REG ER : 1980 PHYSICIAN: RACHID VARNER ADMIT DATE: 05/28/20/ER Signed Date of Exam:05/28/20 CHEST 1 VIEW, AP/PA ONLY INDICATION: Hypertension. COMPARISON STUDY: There is no pertinent study. FINDINGS: There is marked cardiomegaly. Vascularity is slightly increased. No effusion is present. Lungs are clear. IMPRESSION: There is severe cardiomegaly with mild increase of the pulmonary vascularity. Dictated by: Dictated on workstation # [id number] Dict: 05/28/202152 Trans: 05/28/202201 January [id number] Interpreted by: ENEDELIA ENCISO MD Electronically signed by: ENEDELIA ENCISO MD 05/28/202 Departure Impression Primary Impression: Hypertension Qualified Codes: I15.0 - Renovascular hypertension Additional Impressions: Tobacco abuse NSTEMI (non-ST elevated myocardial infarction) Obesity Qualified Codes: E66.01 - Morbid (severe) obesity due to excess calories; Z68.42 - Body mass index (BMI) 45.0-49.9, adult Disposition: 09 ADMITTED INPATIENT Condition: Critical Admissions Decision to Admit Reason: Admit from ER (General) Decision to Admit/Date: May 28, 2020 Time/Decision to Admit Time: 21:45 Departure-Patient Inst. Referrals: ALLYSON WALL MD (PCP/Family) Primary Care Physician Patient Instructions: High Blood Pressure (DC) Add. Discharge Instructions: Increase your Norvasc to 2 tablets once daily until your follow-up with Dr. WALL. Continue to take your potassium supplement. Increase water intake. Decrease smoking. Change positions slowly from sitting, standing and lying. Copy Copies To 1: ALLYSON WALL MD, AMY ARNP May 28, 2020 21:28
[2020-05-28] MEDS ORDERED: ASPIRIN 81 MG CHEW (CHILDREN'S ASA) PO ONE (21:30)
[2020-05-28 21:31] LABS: BASOPHILS # (AUTO) 0.1 10^3/uL (0.0-0.1); BASOPHILS % (AUTO) 0 % (0-10); EOSINOPHILS # (AUTO) 0.2 10^3/uL (0.0-0.3); EOSINOPHILS % (AUTO) 1 % (0-10); HEMATOCRIT 40 % (35-52); HEMOGLOBIN 13.2 g/dL (11.5-16.0); LYMPHOCYTES # (AUTO) 4.5 10^3/uL (1.0-4.0); LYMPHOCYTES % (AUTO) 31 % (12-44); MEAN CORPUSCULAR HEMOGLOBIN 32 pg (25-34); MEAN CORPUSCULAR HGB CONC 33 g/dL (32-36); MEAN CORPUSCULAR VOLUME 95 fL (80-99); MEAN PLATELET VOLUME 10.7 fL (9.0-12.2); MONOCYTES # (AUTO) 0.7 10^3/uL (0.0-1.0); MONOCYTES % (AUTO) 5 % (0-12); NEUTROPHILS # (AUTO) 8.9 10^3/uL (1.8-7.8); NEUTROPHILS % (AUTO) 62 % (42-75); PLATELET COUNT 252 10^3/uL (130-400); WHITE BLOOD COUNT 14.3 10^3/uL (4.3-11.0)
[2020-05-28 21:41] LABS: POTASSIUM 4.2 MMOL/L (3.6-5.0)
[2020-05-28 21:42] LABS: CALCIUM 9.2 MG/DL (8.5-10.1); INR 0.8 (0.8-1.4); PROTHROMBIN TIME PATIENT 11.8 SEC (12.2-14.7)
[2020-05-28 21:44] LABS: TOTAL PROTEIN 7.2 GM/DL (6.4-8.2)
[2020-05-28 21:45] LABS: BILIRUBIN,TOTAL 0.7 MG/DL (0.1-1.0)
[2020-05-28] MEDS ORDERED: NS IV 500 ML 500 ML IV ONE (21:45)
[2020-05-28 21:47] LABS: CREATININE SERUM 1.43 MG/DL (0.60-1.30)
[2020-05-28 21:48] LABS: EOSINOPHILS % (MANUAL) 2 %; LYMPHOCYTES % (MANUAL) 28 %; MONOCYTES % (MANUAL) 6 %; NEUTROPHILS % (MANUAL) 64 %; RBC MORPH NORMAL
[2020-05-28 21:50] LABS: MAGNESIUM 1.9 MG/DL (1.6-2.4)
--- NOTE | 2020-05-28 22:00 | Diagnostic Imaging Report ---
INDICATION: Hypertension. COMPARISON STUDY: There is no pertinent study. FINDINGS: There is marked cardiomegaly. Vascularity is slightly increased. No effusion is present. Lungs are clear. IMPRESSION: There is severe cardiomegaly with mild increase of the pulmonary vascularity. Dictated by: Dictated on workstation # [id number]
[2020-05-28 22:10] LABS: TSH (THYROID ANALYZER) 1.33 UIU/ML (0.35-4.94)
[2020-05-28 22:15] LABS: BILIRUBIN,URINE NEGATIVE (NEGATIVE); CLARITY,URINE CLEAR; COLOR,URINE YELLOW; GLUCOSE, URINE (UA) NEGATIVE (NEGATIVE); KETONES,URINE NEGATIVE (NEGATIVE); LEUKOCYTE ESTERASE ,URINE NEGATIVE (NEGATIVE); NITRITE,URINE NEGATIVE (NEGATIVE); PROTEIN,URINE NEGATIVE (NEGATIVE)
[2020-05-28] MEDS ORDERED: hydrALAZINE (APESOLINE) 20 MG/ML VIAL IV ONE (22:15)
[2020-05-28 22:26] LABS: BACTERIA,URINE NEGATIVE /HPF; RBC,URINE RARE /HPF; SQUAMOUS EPITHELIAL CELL,UR 0-2 /HPF
[2020-05-28] MEDS ORDERED: NITRO DRIP 25000 MCG/D5W 250 ML IV SCH ×2 (22:45→23:16)
[2020-05-28] MEDS ORDERED: CLOPIDOGREL 300 MG (PLAVIX) TABLET PO ONE (23:00)
[2020-05-28] MEDS ORDERED: NS IV 1000 ML 1,000 ML IV SCH (23:15)
[2020-05-28] MEDS ORDERED: LORazepam INJ 2 MG/ML (ATIVAN) VIAL IVP ONE (23:15)
[2020-05-29] VITALS (25 sets, daily range): BP systolic 137–256; BP diastolic 81–154
[2020-05-29] MEDS ORDERED: ONDANSETRON 4 MG/2 ML (SDV) Z0FRAN IVP PRN (00:30)
[2020-05-29] MEDS: NS IV 1000 ML 1,000 ML IV SCH ×2 (00:55→13:50)
[2020-05-29] MEDS: ACETAMINOPHEN 325 MG TABLET PO PRN ×2 (00:56→08:38)
[2020-05-29] MEDS: NITROGLYCERIN DRIP 25 MG/250 ML D5W (PRE-MIX) IV SCH ×2 (00:57→10:06)
[2020-05-29] MEDS ORDERED: PROCHLORPERAZINE 10 MG/2ML INJ (COMPAZINE) IV ONE (02:45)
[2020-05-29] MEDS ORDERED: RT-ALBUTEROL INHALER HFA (VENTOLIN HFA) 18 GM IH PRN (02:45)
[2020-05-29] MEDS ORDERED: fentaNYL INJECTION 100 MCG/2 ML AMP IVP ONE (02:45)
[2020-05-29 03:19] LABS: BASOPHILS # (AUTO) 0.1 10^3/uL (0.0-0.1); BASOPHILS % (AUTO) 0 % (0-10); EOSINOPHILS # (AUTO) 0.2 10^3/uL (0.0-0.3); EOSINOPHILS % (AUTO) 1 % (0-10); HEMATOCRIT 37 % (35-52); HEMOGLOBIN 12.1 g/dL (11.5-16.0); LYMPHOCYTES # (AUTO) 3.6 10^3/uL (1.0-4.0); LYMPHOCYTES % (AUTO) 26 % (12-44); MEAN CORPUSCULAR HEMOGLOBIN 31 pg (25-34); MEAN CORPUSCULAR HGB CONC 33 g/dL (32-36); MEAN CORPUSCULAR VOLUME 94 fL (80-99); MEAN PLATELET VOLUME 10.8 fL (9.0-12.2); MONOCYTES # (AUTO) 0.7 10^3/uL (0.0-1.0); MONOCYTES % (AUTO) 5 % (0-12); NEUTROPHILS % (AUTO) 66 % (42-75); PLATELET COUNT 234 10^3/uL (130-400); WHITE BLOOD COUNT 13.6 10^3/uL (4.3-11.0)
[2020-05-29 03:31] LABS: ALBUMIN 3.6 GM/DL (3.2-4.5); POTASSIUM 3.8 MMOL/L (3.6-5.0)
[2020-05-29 03:32] LABS: CALCIUM 8.6 MG/DL (8.5-10.1)
[2020-05-29 03:34] LABS: TOTAL PROTEIN 6.5 GM/DL (6.4-8.2)
[2020-05-29 03:35] LABS: BILIRUBIN,TOTAL 0.8 MG/DL (0.1-1.0)
[2020-05-29 03:37] LABS: CREATININE SERUM 1.24 MG/DL (0.60-1.30); PHOSPHORUS 2.7 MG/DL (2.3-4.7)
[2020-05-29 03:40] LABS: MAGNESIUM 1.8 MG/DL (1.6-2.4)
[2020-05-29] MEDS: POTASSIUM CL 10MEQ/50ML IVPB 50 ML IV SCH (05:54)
[2020-05-29] MEDS: MAGNESIUM 1 GM/100 ML IVPB 100 ML IV SCH (05:55)
[2020-05-29] MEDS: KCL 20 MEQ TAB (K-DUR) PO SCH (05:55)
[2020-05-29] MEDS: LORazepam INJ 2 MG/ML (ATIVAN) VIAL IVP PRN ×2 (08:37→20:04)
[2020-05-29] MEDS: NICOTINE 14 MG (NICODERM) PATCH TD SCH (08:39)
[2020-05-29] MEDS: NICOTINE PATCH REMOVAL TP SCH (08:39)
--- NOTE | 2020-05-29 08:44 | NUR ---
REBECCA Fuentes called this RN to give the order to put pt's nitro drip up to 50 mcg at this time.
[2020-05-29] MEDS ORDERED: meTOprolol 5 MG/5 ML (LOPRESSOR) VIAL ONE (09:48)
[2020-05-29] MEDS ORDERED: meTOprolol 5 MG/5 ML (LOPRESSOR) VIAL IV ONE (10:00)
--- NOTE | 2020-05-29 10:31 | History & Physical ---
History of Present Illness History of Present Illness Reason for visit/HPI This is a 39 year old female who presented to the emergency room after a second syncopal episode in 3 days. She was found to be diaphoretic in a hypertensive crisis with elevated BUN/Cr and elevated troponin-I at 0.634. She denied chest pain but was short of air. She was given oral aspirin, IV Cardizem, IV hydralazine and started on a nitro drip. She will be admitted to the ICU on a cardizem drip with cardiology consult. An ECHO is ordered for the morning. Her rapid COVID was negative but a PCR will be done as well. Date of Admission May 28, 2020 at 23:23 Date Seen by a Provider: May 29, 2020 Time Seen by a Provider: 10:29 I consulted on this patient on 05/29/20 10:25 Attending Physician Nuzhat Pelletier DO Admitting Physician Olga Johnson MD Consult Allergies and Home Medications Allergies Coded Allergies: codeine (Verified Allergy, Unknown, 10/08/07) Home Medications Amlodipine Besylate 10 Mg Tablet, 10 MG PO DAILY, (Reported) Docusate Sodium 100 Mg Capsule, 100 MG PO BID PRN for CONSTIPATION Prescribed by: ED CHOWDHURY on 01/06/15 1608 Hydrocodone Bit/Acetaminophen 1 Tab Tab, 1 EACH PO Q6H PRN for PAIN-MODERATE Prescribed by: VILMA RODRIGUEZ on 03/01/19 1537 Hydrocodone/Acetaminophen 1 Each Tablet, 1 EACH PO Q6H PRN for PAIN-MODERATE Prescribed by: CORI STOVALL on 08/17/18 1540 Hydromorphone HCl 2 Mg Tablet, 2 MG PO Q6H Prescribed by: CORAZON SÁNCHEZ on 01/18/15 1238 Ibuprofen 600 Mg Tablet, 600 MG PO Q6H PRN for PAIN Prescribed by: ED CHOWDHURY on 01/06/15 1608 Levofloxacin 500 Mg Tablet, 500 MG PO DAILY Prescribed by: CORAZON SÁNCHEZ on 01/18/15 1028 Lisinopril 10 Mg Tablet, 10 MG PO DAILY, (Reported) Ondansetron 4 Mg Tab.rapdis, 4 MG PO TID Prescribed by: CORAZON SÁNCHEZ on 01/18/15 1255 Ondansetron 8 Mg Tab.rapdis, 8 MG PO Q6H PRN for NAUSEA/VOMITING Prescribed by: CORI STOVALL on 05/26/20 1417 Phenazopyridine HCl 100 Mg Tablet, 100 MG PO TIDPC Prescribed by: CORAZON SÁNCHEZ on 01/18/15 1028 Phenazopyridine HCl 200 Mg Tablet, 1 TAB PO Q8H PRN for pain Prescribed by: VILMA RODRIGUEZ on 03/01/19 1538 Potassium Chloride 20 Meq Tablet.er, 20 MEQ PO DAILY Prescribed by: CORI STOVALL on 05/26/20 1417 Simethicone 80 Mg Tab.chew, 40 MG PO TID PRN for INDIGESTION Prescribed by: ED CHOWDHURY on 01/06/15 1608 Spironolactone 50 Mg Tablet, 50 MG PO DAILY, (Reported) Patient Home Medication List Home Medication List Reviewed: Yes Past Uezwcli-Ooqltv-Ckozts Hx Past Med/Social Hx: Reviewed Nursing Past Med/Soc Hx Patient Social History Alcohol Use: Occasionally Uses Recreational Drug Use: No Smoking Status: Current Everyday Smoker Type Used: Cigarettes (1/2 pack/daily) 2nd Hand Smoke Exposure: Yes Recent Foreign Travel: No Contact w/other who traveled: No Recent Hopitalizations: No Recent Infectious Disease Expo: No Immunizations Up To Date Tetanus Booster (TDap): More than 5yrs Date of Influenza Vaccine: Feb 10, 2019 Seasonal Allergies Seasonal Allergies: No Past Medical History Surgeries: Section, Hysterectomy Cardiac: Hypertension Reproductive: No (AUB) Sexually Transmitted Disease: No HIV/AIDS: No Hysterectomy History of Blood Disorders: No Adverse Reaction to Blood Mejia: No Family History Asthma G8 BROTHER Cataracts GRANDPARENTS Diabetes mellitus GRANDPARENTS FH: cancer GRANDPARENTS (LIVER, BREAST CA) Hypertension 19 MOTHER Heart Disease, Cancer Review of Systems Constitutional: diaphoresis, weakness EENTM: No see HPI, No no symptoms reported, No ear discharge, No hearing loss, No ear pain, No blurred vision, No double vision, No eye pain, No tearing, No vision loss, No dental problems, No hoarseness, No mouth pain, No mouth swelling, No epistaxis, No nose congestion, No nose pain, No throat pain, No throat swelling, No other Respiratory: dyspnea on exertion, short of breath Cardiovascular: syncope Gastrointestinal: No RUQ, No LUQ, No RLQ, No LLQ, No no symptoms reported, No see HPI, No abdominal pain, No constipation, No diarrhea, No dysphagia, No hematemesis, No heartburn, No jaundice, No loss of appetite, No melena, No nausea, No vomiting, No other Genitourinary: No no symptoms reported, No see HPI, No decreased output, No discharge, No dysuria, No frequency, No hematuria, No hesitancy, No incontinence, No nocturia, No pain, No other Musculoskeletal: No no symptoms reported, No see HPI, No back pain, No gout, No joint pain, No joint swelling, No muscle pain, No muscle stiffness, No muscle cramps, No muscle twitching, No muscle weakness, No neck pain, No other Skin: No no symptoms reported, No see HPI, No change in color, No change in hair/nails, No dryness, No hx of skin cancer, No lesions, No lumps, No pruritus, No rash, No other Psychiatric/Neurological: Anxiety, Weakness Physical Exam Vital Signs Vital Signs - First Documented 05/28/20 05/29/20 21:05 02:19 Temp 37.1 Pulse 105 Resp 20 B/P (MAP) 256/145 (182) Pulse Ox 97 O2 Delivery Room Air FiO2 21 Capillary Refill : Less Than 3 Seconds Height, Weight, BMI Height: 5'2.00" Weight: 280lbs. 0.0oz. 127.830127bi; 52.73 BMI Method:Stated General Appearance: No Apparent Distress, Obese HEENT: Normal ENT Inspection Neck: Supple Respiratory: Lungs Clear Cardiovascular: Regular Rate, Rhythm, Gallop/S4 Gastrointestinal: Normal Bowel Sounds, Non Tender, Soft Rectal: Deferred Back: No CVA Tenderness Extremity: Non Tender, No Calf Tenderness, No Pedal Edema Neurologic/Psychiatric: Alert, Oriented x3 Skin: Warm/Dry Comments Laboratory Tests 05/28/20 21:20: White Blood Count 14.3H, Red Blood Count 4.17, Hemoglobin 13.2, Hematocrit 40, Mean Corpuscular Volume 95, Mean Corpuscular Hemoglobin 32, Mean Corpuscular Hemoglobin Concent 33, Red Cell Distribution Width 13.9, Platelet Count 252, Mean Platelet Volume 10.7, Immature Granulocyte % (Auto) 0, Neutrophils (%) (Auto) 62, Lymphocytes (%) (Auto) 31, Monocytes (%) (Auto) 5, Eosinophils (%) (Auto) 1, Basophils (%) (Auto) 0, Neutrophils # (Auto) 8.9H, Lymphocytes # (Auto) 4.5H, Monocytes # (Auto) 0.7, Eosinophils # (Auto) 0.2, Basophils # (Auto) 0.1, Immature Granulocyte # (Auto) 0.1, Neutrophils % (Manual) 64, Lymphocytes % (Manual) 28, Monocytes % (Manual) 6, Eosinophils % (Manual) 2, Blood Morphology Comment NORMAL, Prothrombin Time 11.8L, INR Comment 0.8, Activated Partial Thromboplast Time 27, D-Dimer 0.86H, Sodium Level 137, Potassium Level 4.2, Chloride Level 101, Carbon Dioxide Level 25, Anion Gap 11, Blood Urea Nitrogen 25H, Creatinine 1.43H, Estimat Glomerular Filtration Rate 40, BUN/Creatinine Ratio 17, Glucose Level 97, Calcium Level 9.2, Corrected Calcium 9.2, Magnesium Level 1.9, Total Bilirubin 0.7, Aspartate Amino Transf (AST/SGOT) 29, Alanine Aminotransferase (ALT/SGPT) 46, Alkaline Phosphatase 75, Lactate Dehydrogenase 343H, Myoglobin 87.5, Troponin I 0.634*H, C-Reactive Protein High Sensitivity 0.52H, Total Protein 7.2, Albumin 4.0, Procalcitonin 0.02, TSH [place] Testing 1.33 05/28/20 22:05: Urine Color YELLOW, Urine Clarity CLEAR, Urine pH 6.0, Urine Specific [place] <=1.005, Urine Protein NEGATIVE, Urine Glucose (UA) NEGATIVE, Urine Ketones NEGATIVE, Urine Nitrite NEGATIVE, Urine Bilirubin NEGATIVE, Urine Urobilinogen 0.2, Urine Leukocyte Esterase NEGATIVE, Urine RBC (Auto) TRACE-I, Urine RBC RARE, Urine WBC NONE, Urine Squamous Epithelial Cells 0-2, Urine Crystals NONE, Urine Bacteria NEGATIVE, Urine Casts NONE, Urine Mucus NEGATIVE, Urine Culture Indicated NO 05/28/20 22:25: Coronavirus 2019 ([facility]AO) Negative 05/28/20 23:15: Coronavirus (COVID-19)(PCR) [Pending] 05/29/20 02:43: White Blood Count 13.6H, Red Blood Count 3.92, Hemoglobin 12.1, Hematocrit 37, Mean Corpuscular Volume 94, Mean Corpuscular Hemoglobin 31, Mean Corpuscular Hemoglobin Concent 33, Red Cell Distribution Width 13.9, Platelet Count 234, Mean Platelet Volume 10.8, Immature Granulocyte % (Auto) 0, Neutrophils (%) (Auto) 66, Lymphocytes (%) (Auto) 26, Monocytes (%) (Auto) 5, Eosinophils (%) (Auto) 1, Basophils (%) (Auto) 0, Neutrophils # (Auto) 9.0H, Lymphocytes # (Auto) 3.6, Monocytes # (Auto) 0.7, Eosinophils # (Auto) 0.2, Basophils # (Auto) 0.1, Immature Granulocyte # (Auto) 0.1, Sodium Level 138, Potassium Level 3.8, Chloride Level 105, Carbon Dioxide Level 23, Anion Gap 10, Blood Urea Nitrogen 22H, Creatinine 1.24, Estimat Glomerular Filtration Rate 48, BUN/Creatinine Ratio 18, Glucose Level 115H, Calcium Level 8.6, Corrected Calcium 8.9, Phosphorus Level 2.7, Magnesium Level 1.8, Total Bilirubin 0.8, Aspartate Amino Transf (AST/SGOT) 23, Alanine Aminotransferase (ALT/SGPT) 39, Alkaline Phosp hatase 73, Troponin I 0.718*H, Total Protein 6.5, Albumin 3.6 Assessment/Plan Assessment and Plan 1. Hypertensive Crisis--admit to ICU with nitro drip, add IV lopressor as well, check serum/urine catecholamines, needs sleep study outpatient 2. NonSTEMI--Troponin-I up to 0.712, check 2-D ECHO and possible cardiac cath per cardiology 3. Acute Renal Insufficiency--hydrate and monitor BUN/Cr 4. Elevated WBC count--appears chronic so may need further workup outpatient Admission Diagnosis Admission Status: Inpatient Order (span 2 midnights) Reason for Inpatient Admission: Needs ICU for IV nitro and IV antihypertensive meds NUZHAT PELLETIER DO May 29, 2020 10:31
[2020-05-29] MEDS ORDERED: hydrALAZINE (APESOLINE) 20 MG/ML VIAL IV PRN (10:45)
[2020-05-29] MEDS ORDERED: LABETALOL HCL 20 MG/4 ML VIAL IV ONE (11:15)
[2020-05-29] MEDS: LABETALOL INJECTION 200 MG in NS (IVPB) 160 ML IV PRN ×2 (11:42→16:36)
[2020-05-29] MEDS ORDERED: meTOprolol 5 MG/5 ML (LOPRESSOR) VIAL IV SCH (12:00)
[2020-05-29] MEDS: amLODIPine 5 MG (NORVASC) TAB PO SCH (14:52)
--- NOTE | 2020-05-29 17:41 | Consultation-Cardiology ---
HPI-Cardiology Cardiology Consultation: Date of Consultation 05/29/20 Date of Admission Attending Physician Lynette Pelletier DO Admitting Physician Olga Johnson MD Consulting Physician Idalmis VINCENT MD HPI: Time Seen by a Provider: 15:00 Chief Complaint: Severe hypertension This is a 39-year-old lady with history of severe hypertension. Episode of syncope. Presented with elevated troponin and BUN/creatinine. This is malignant hypertension. She denied any chest pain but was complaining of mild shortness of breath. She was admitted for further evaluation. She is an active smoker. Review of Systems-Cardiology Review of Systems Constitutional: As described under HPI; No As described under HPI, No no symptoms reported, No chills, No fever, No lightheadedness Eyes: No As described under HPI, No no symptoms reported, No blindness, No blurred vision, No contact lenses, No drainage, No decreased acuity, No foreign body sensation, No pain, No vision change Ears/Nose/Throat: No As described under HPI, No no symptoms reported, No chronic hearing loss, No ear discharge, No ear pain, No nasal drainage, No ulcerations Respiratory: No no symptoms reported; As described under HPI; No As described under HPI, No cough, No orthopnea; shortness of breath; No SOB with excertion Cardiovascular: No no symptoms reported; As described under HPI; No As described under HPI, No chest pain, No edema, No irregular heart rate, No lightheadedness, No palpitations Gastrointestinal: No no symptoms reported, No As described under HPI, No abdomen distended, No abdominal pain, No blood streaked bowels, No constipation, No diarrhea, No nausea, No vomiting, No stool coloration changes Genitourinary: No As described under HPI, No burning, No dysuria, No discharge, No frequency, No flank pain, No hematuria, No urgency : Yes : No Skin: No rash, No skin related problems, No ulcerations Psychiatric/Neurological: No anxiety, No depression, No seizure, No focal weakness, No syncope Hematologic: No bleeding abnormalities All Other Systems Reviewed Negative Unless Noted: Yes UDP-Lghive-Ezwfnp Hx Patient Social History Smoking Status: Current Everyday Smoker 2nd Hand Smoke Exposure: Yes Have you traveled recently?: No Alcohol Use?: Yes Pt feels they are or have been: No Immunizations Up To Date Tetanus Booster (TDap): More than 5yrs Date of Influenza Vaccine: Feb 10, 2019 Past Medical History PMH As described under Assessment. Family Medical History Family History: Asthma G8 BROTHER Cataracts GRANDPARENTS Diabetes mellitus GRANDPARENTS FH: cancer GRANDPARENTS (LIVER, BREAST CA) Hypertension 19 MOTHER Allergies and Home Medications Allergies Coded Allergies: codeine (Verified Allergy, Unknown, 10/08/07) Home Medications Amlodipine Besylate 10 Mg Tablet, 10 MG PO DAILY, (Reported) Docusate Sodium 100 Mg Capsule, 100 MG PO BID PRN for CONSTIPATION Prescribed by: ED CHOWDHURY on 01/06/15 1608 Hydrocodone Bit/Acetaminophen 1 Tab Tab, 1 EACH PO Q6H PRN for PAIN-MODERATE Prescribed by: VILMA RODRIGUEZ on 03/01/19 1537 Hydrocodone/Acetaminophen 1 Each Tablet, 1 EACH PO Q6H PRN for PAIN-MODERATE Prescribed by: CORI STOVALL on 08/17/18 1540 Hydromorphone HCl 2 Mg Tablet, 2 MG PO Q6H Prescribed by: CORAZON SÁNCHEZ on 01/18/15 1238 Ibuprofen 600 Mg Tablet, 600 MG PO Q6H PRN for PAIN Prescribed by: ED CHOWDHURY on 01/06/15 1608 Levofloxacin 500 Mg Tablet, 500 MG PO DAILY Prescribed by: CORAZON SÁNCHEZ on 01/18/15 1028 Lisinopril 10 Mg Tablet, 10 MG PO DAILY, (Reported) Ondansetron 4 Mg Tab.rapdis, 4 MG PO TID Prescribed by: CROAZON SÁNCHEZ on 01/18/15 1255 Ondansetron 8 Mg Tab.rapdis, 8 MG PO Q6H PRN for NAUSEA/VOMITING Prescribed by: CORI STOVALL on 05/26/20 1417 Phenazopyridine HCl 100 Mg Tablet, 100 MG PO TIDPC Prescribed by: CORAZON SÁNCHEZ on 01/18/15 1028 Phenazopyridine HCl 200 Mg Tablet, 1 TAB PO Q8H PRN for pain Prescribed by: VILMA RODRIGUEZ on 03/01/19 1538 Potassium Chloride 20 Meq Tablet.er, 20 MEQ PO DAILY Prescribed by: CORI STOVALL on 05/26/20 1417 Simethicone 80 Mg Tab.chew, 40 MG PO TID PRN for INDIGESTION Prescribed by: ED CHOWDHURY on 01/06/15 1608 Spironolactone 50 Mg Tablet, 50 MG PO DAILY, (Reported) Patient Home Medication List Home Medication List Reviewed: Yes Physical Exam-Cardiology Physical Exam Vital Signs/I&O 05/29/20 05/29/20 05/29/20 05/29/20 06:00 07:00 07:00 07:32 Temp 36.0 Pulse 77 92 84 B/P (MAP) 191/103 (132) 200/121 (147) O2 Delivery Room Air Room Air 05/29/20 05/29/20 05/29/20 05/29/20 08:00 09:00 10:00 10:06 Pulse 87 73 91 B/P (MAP) 219/137 (164) 220/154 (176) 193/110 (137) 193/110 Pulse Ox 95 95 O2 Delivery Room Air Room Air Room Air 05/29/20 05/29/20 05/29/20 05/29/20 11:00 12:00 13:00 13:00 Pulse 80 72 78 65 B/P (MAP) 205/132 (156) 185/120 (137) 150/88 (122) Pulse Ox 96 O2 Delivery Room Air Room Air Room Air 05/29/20 05/29/20 05/29/20 05/29/20 14:00 15:00 15:07 16:00 Temp 35.9 Pulse 71 77 70 B/P (MAP) 155/100 (118) 173/115 (134) 184/109 (134) Pulse Ox 94 94 94 O2 Delivery Room Air Room Air Room Air 05/29/20 17:00 Pulse 75 B/P (MAP) 164/115 (131) O2 Delivery Room Air 05/28/20 23:59 Intake Total 500 ml Balance 500 ml Capillary Refill : Less Than 3 Seconds Constitutional: appears stated age, AAO x 3; No apparent distress; well- developed, well-nourished HEENT: PERRL; No discharge; hearing is well preserved, oral hygience is good; No ulceration, No xanthelasmas are seen Neck: No carotid bruit; carotid pulses are 2 + bilaterally Respiratory: chest is bilaterally symmetric, lungs clear to auscultation Cardiovascular: regular rate-rhythm, S1 and S2 Gastrointestinal: soft, audible bowel sounds; No spleenomegaly Rectal: deferred Extremities: normal range of motion, non-tender, normal inspection; No clubbing, No cyanosis, No significant edema Neurologic/Psychiatric: no motor/sensory deficits, alert, normal mood/affect, oriented x 3, power is 5/5 both on sides Skin: normal color; No rash, No ulcerations Data Review Labs Laboratory Tests 05/28/20 21:20: White Blood Count 14.3H, Red Blood Count 4.17, Hemoglobin 13.2, Hematocrit 40, Mean Corpuscular Volume 95, Mean Corpuscular Hemoglobin 32, Mean Corpuscular Hemoglobin Concent 33, Red Cell Distribution Width 13.9, Platelet Count 252, Mean Platelet Volume 10.7, Immature Granulocyte % (Auto) 0, Neutrophils (%) (Auto) 62, Lymphocytes (%) (Auto) 31, Monocytes (%) (Auto) 5, Eosinophils (%) (Auto) 1, Basophils (%) (Auto) 0, Neutrophils # (Auto) 8.9H, Lymphocytes # (Auto) 4.5H, Monocytes # (Auto) 0.7, Eosinophils # (Auto) 0.2, Basophils # (Auto) 0.1, Immature Granulocyte # (Auto) 0.1, Neutrophils % (Manual) 64, Lymphocytes % (Manual) 28, Monocytes % (Manual) 6, Eosinophils % (Manual) 2, Blood Morphology Comment NORMAL, Prothrombin Time 11.8L, INR Comment 0.8, Activated Partial Thromboplast Time 27, D-Dimer 0.86H, Sodium Level 137, Potassium Level 4.2, Chloride Level 101, Carbon Dioxide Level 25, Anion Gap 11, Blood Urea Nitrogen 25H, Creatinine 1.43H, Estimat Glomerular Filtration Rate 40, BUN/Creatinine Ratio 17, Glucose Level 97, Calcium Level 9.2, Corrected Calcium 9.2, Magnesium Level 1.9, Total Bilirubin 0.7, Aspartate Amino Transf (AST/SGOT) 29, Alanine Aminotransferase (ALT/SGPT) 46, Alkaline Phosphatase 75, Lactate Dehydrogenase 343H, Myoglobin 87.5, Troponin I 0.634*H, C-Reactive Protein High Sensitivity 0.52H, Total Protein 7.2, Albumin 4.0, Procalcitonin 0.02, TSH [place] Testing 1.33 05/28/20 22:05: Urine Color YELLOW, Urine Clarity CLEAR, Urine pH 6.0, Urine Specific [place] <=1.005, Urine Protein NEGATIVE, Urine Glucose (UA) NEGATIVE, Urine Ketones NEGATIVE, Urine Nitrite NEGATIVE, Urine Bilirubin NEGATIVE, Urine Urobilinogen 0.2, Urine Leukocyte Esterase NEGATIVE, Urine RBC (Auto) TRACE-I, Urine RBC RARE, Urine WBC NONE, Urine Squamous Epithelial Cells 0-2, Urine Crystals NONE, Urine Bacteria NEGATIVE, Urine Casts NONE, Urine Mucus NEGATIVE, Urine Culture Indicated NO 05/28/20 22:25: Coronavirus 2019 (JOAO) Negative 05/28/20 23:15: 05/29/20 02:43: White Blood Count 13.6H, Red Blood Count 3.92, Hemoglobin 12.1, Hematocrit 37, Mean Corpuscular Volume 94, Mean Corpuscular Hemoglobin 31, Mean Corpuscular Hemoglobin Concent 33, Red Cell Distribution Width 13.9, Platelet Count 234, Mean Platelet Volume 10.8, Immature Granulocyte % (Auto) 0, Neutrophils (%) (Auto) 66, Lymphocytes (%) (Auto) 26, Monocytes (%) (Auto) 5, Eosinophils (%) (Auto) 1, Basophils (%) (Auto) 0, Neutrophils # (Auto) 9.0H, Lymphocytes # (Auto) 3.6, Monocytes # (Auto) 0.7, Eosinophils # (Auto) 0.2, Basophils # (Auto) 0.1, Immature Granulocyte # (Auto) 0.1, Sodium Level 138, Potassium Level 3.8, Chloride Level 105, Carbon Dioxide Level 23, Anion Gap 10, Blood Urea Nitrogen 22H, Creatinine 1.24, Estimat Glomerular Filtration Rate 48, BUN/Creatinine Ratio 18, Glucose Level 115H, Calcium Level 8.6, Corrected Calcium 8.9, Phosp horus Level 2.7, Magnesium Level 1.8, Total Bilirubin 0.8, Aspartate Amino Transf (AST/SGOT) 23, Alanine Aminotransferase (ALT/SGPT) 39, Alkaline Phosphatase 73, Troponin I 0.718*H, Total Protein 6.5, Albumin 3.6 A/P-Cardiology Assessment/Admission Diagnosis COVID-19 PU I, Shortness of breath, Malignant hypertension, Acute kidney injury, Positive troponin., Active smoking. Plan COVID-19 PU I, pending PCR. Shortness of breath, likely significant hypertensive heart disease. Malignant hypertension, currently on IV labetalol. Gradually switched to carvedilol 25 mg twice a day and amlodipine 10 mg daily. Echocardiogram. Acute kidney injury, IV fluids. Positive troponin, likely due to malignant hypertension and hypertensive heart disease. Negative chest pain. Will require coronary workup in the near future. Active smoking. Strongly recommended to quit. Thank you for your consultation. Please call me if you have any questions. Lee Vincent MD, FACP, FACC, FSCAI, FHRS, CCDS Interventional Cardiology Cardiac Electrophysiology Vascular Medicine and Endovascular Interventions Idalmis VINCENT MD May 29, 2020 17:41
[2020-05-29] MEDS: CARVEDILOL 12.5 MG (COREG) TABLET PO SCH (20:03)
[2020-05-30] VITALS (25 sets, daily range): BP systolic 116–214; BP diastolic 89–140
[2020-05-30 03:17] LABS: POTASSIUM 3.8 MMOL/L (3.6-5.0)
[2020-05-30 03:19] LABS: CALCIUM 8.7 MG/DL (8.5-10.1)
[2020-05-30 03:23] LABS: CREATININE SERUM 1.35 MG/DL (0.60-1.30); PHOSPHORUS 3.8 MG/DL (2.3-4.7)
[2020-05-30 03:25] LABS: MAGNESIUM 2.1 MG/DL (1.6-2.4)
[2020-05-30] MEDS: MAGNESIUM 1 GM/100 ML IVPB 100 ML IV SCH (03:38)
[2020-05-30] MEDS: POTASSIUM CL 10MEQ/50ML IVPB 50 ML IV SCH (03:38)
[2020-05-30] MEDS: KCL 20 MEQ TAB (K-DUR) PO SCH (03:39)
--- NOTE | 2020-05-30 04:00 | Pulmonary Consultation ---
History of Present Illness History of Present Illness Date Seen by Provider: May 30, 2020 Time Seen by Provider: 03:55 Date of Admission Allergies and Home Medications Allergies Coded Allergies: codeine (Verified Allergy, Unknown, 10/08/07) Home Medications Amlodipine Besylate 10 Mg Tablet, 10 MG PO DAILY, (Reported) Docusate Sodium 100 Mg Capsule, 100 MG PO BID PRN for CONSTIPATION Prescribed by: ED CHOWDHURY on 01/06/15 1608 Hydrocodone Bit/Acetaminophen 1 Tab Tab, 1 EACH PO Q6H PRN for PAIN-MODERATE Prescribed by: VILMA RODRIGUEZ on 03/01/19 1537 Hydrocodone/Acetaminophen 1 Each Tablet, 1 EACH PO Q6H PRN for PAIN-MODERATE Prescribed by: CORI STOVALL on 08/17/18 1540 Hydromorphone HCl 2 Mg Tablet, 2 MG PO Q6H Prescribed by: CORAZON SÁNCHEZ on 01/18/15 1238 Ibuprofen 600 Mg Tablet, 600 MG PO Q6H PRN for PAIN Prescribed by: ED CHOWDHURY on 01/06/15 1608 Levofloxacin 500 Mg Tablet, 500 MG PO DAILY Prescribed by: CORAZON SÁNCHEZ on 01/18/15 1028 Lisinopril 10 Mg Tablet, 10 MG PO DAILY, (Reported) Ondansetron 4 Mg Tab.rapdis, 4 MG PO TID Prescribed by: CORAZON SÁNCHEZ on 01/18/15 1255 Ondansetron 8 Mg Tab.rapdis, 8 MG PO Q6H PRN for NAUSEA/VOMITING Prescribed by: CORI STOVALL on 05/26/20 1417 Phenazopyridine HCl 100 Mg Tablet, 100 MG PO TIDPC Prescribed by: CORAZON SÁNCHEZ on 01/18/15 1028 Phenazopyridine HCl 200 Mg Tablet, 1 TAB PO Q8H PRN for pain Prescribed by: VILMA RODRIGUEZ on 03/01/19 1538 Potassium Chloride 20 Meq Tablet.er, 20 MEQ PO DAILY Prescribed by: CORI STOVALL on 05/26/20 1417 Simethicone 80 Mg Tab.chew, 40 MG PO TID PRN for INDIGESTION Prescribed by: ED CHOWDHURY on 01/06/15 1608 Spironolactone 50 Mg Tablet, 50 MG PO DAILY, (Reported) Past Qpuialj-Coxkbt-Jjflkr Hx Past Med/Social Hx: Reviewed Nursing Past Med/Soc Hx Patient Social History Alcohol Use: Occasionally Uses Smoking Status: Current Everyday Smoker Type Used: Cigarettes (1/2 pack/daily) 2nd Hand Smoke Exposure: Yes Recent Infectious Disease Expo: No Recent Hopitalizations: No Have you traveled recently?: No Alcohol Use?: Yes Immunizations Up To Date Tetanus Booster (TDap): More than 5yrs Date of Influenza Vaccine: Feb 10, 2019 Seasonal Allergies Seasonal Allergies: No Past Medical History Surgeries: Yes (KNEE SCOPE, ) Section, Hysterectomy Respiratory: No Cardiac: Yes Hypertension Neurological: No 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 0.0oz. 127.529527ls; 52.73 BMI Method:Stated Exam Exam Vital Signs Date Time Temp Pulse Resp B/P (MAP) Pulse Ox O2 Delivery O2 Flow Rate FiO2 05/30/20 00:00 95 Room Air 05/30/20 00:00 78 157/96 (116) Room Air 05/29/20 23:00 79 163/102 (124) Room Air 05/29/20 22:00 84 151/81 (99) Room Air 05/29/20 22:00 94 Room Air 05/29/20 21:00 79 137/92 (111) 98 Room Air 05/29/20 21:00 95 Room Air 05/29/20 20:00 78 163/103 (116) Room Air 05/29/20 19:12 36.7 05/29/20 19:05 96 Room Air 05/29/20 19:00 75 140/86 (104) 84 Room Air 05/29/20 19:00 75 05/29/20 18:00 78 157/86 (109) Room Air 05/29/20 17:00 75 164/115 (131) Room Air 05/29/20 16:00 70 184/109 (134) 94 Room Air 05/29/20 15:07 35.9 05/29/20 15:00 77 173/115 (134) 94 Room Air 05/29/20 14:00 71 155/100 (118) 94 Room Air 05/29/20 13:00 65 150/88 (122) Room Air 05/29/20 13:00 78 05/29/20 12:00 72 185/120 (137) Room Air 05/29/20 11:00 80 205/132 (156) 96 Room Air 05/29/20 10:06 193/110 05/29/20 10:00 91 193/110 (137) 95 Room Air 05/29/20 09:00 73 220/154 (176) 95 Room Air 05/29/20 08:00 87 219/137 (164) Room Air 05/29/20 07:32 36.0 05/29/20 07:00 84 200/121 (147) Room Air 05/29/20 07:00 92 05/29/20 06:00 77 191/103 (132) Room Air 05/29/20 05:00 36.3 96 216/105 (142) 95 Room Air 05/29/20 04:00 99 232/127 (162) 95 Room Air I & O 05/30/20 06:59 Intake Total 1350 ml Output Total 3400 ml Balance -2050 ml Height & Weight Height: 5'2.00" Weight: 280lbs. 0.0oz. 127.931016cy; 52.73 BMI Method:Stated General Appearance: No Apparent Distress, Obese HEENT: Normal ENT Inspection Neck: Supple Respiratory: Lungs Clear Cardiovascular: Regular Rate, Rhythm, Gallop/S4 Capillary Refill: Less Than 3 Seconds Extremity: Non Tender, No Calf Tenderness, No Pedal Edema Neurologic/Psychiatric: Alert, Oriented x3 Skin: Warm/Dry Results Lab Laboratory Tests 05/28/20 21:20 05/29/20 02:43 05/30/20 02:49 Assessment/Plan Assessment/Plan -HTN Emergency -Currently off gtt -Hydralazine PRN -Continue home meds NSTEMI -Cardiology consulted Acute renal failure -Monitor Leukocytosis -Monitor DAHIANA FISHER DO May 30, 2020 04:00
[2020-05-30] MEDS: amLODIPine 5 MG (NORVASC) TAB PO SCH (05:33)
[2020-05-30] MEDS: CARVEDILOL 12.5 MG (COREG) TABLET PO SCH ×2 (05:33→20:09)
--- NOTE | 2020-05-30 08:08 | Progress Note ---
Subjective Subjective Date Seen by Provider: May 30, 2020 Time Seen by Provider: 08:00 PT IS A 39 Y/O FEMALE WHO IS KNOWN TO ME FROM CLINIC. SHE HAS HX OF HYPERTENSION WITH CONTROL BASED ON READINGS AT THE CLINIC. SHE REPORTS THAT SHE HAD A PRESYNCOPAL EPISODE AT THE DENTIST OFFICE AFTER SHE HAD HER CLEANING SHE W BENDING OVER TO UPPER EXTREMITY SURGEON HER PURSE WHEN SHE GOT LIGHT -HEADED. SHE PRESENTED TO THE ER - WAS FOUND TO HAVE MILD HYPOKALEMIA AND ELEVATED BLOOD PRESSURE IN THE 170'S WAS SENT HOME WITH ADJUSTMENT OF HER HOME REGIMEN AND TO FOLLOW UP ON 05/31/2020 IN THE OFFICE. SHE REPORTS THAT ON 05/28/2020 SHE HAD RECURRENT SENSATION OF LIGHT HEADEDNESS, AND REPORTEDLY FELT LIKE AN ELEPHANT WAS SITTING ON HER CHEST. SHE WAS EVALUATED IN THE ER AND FOUND TO HAVE SEVERE HYPERTENSIVE CRISIS AND NSTEMI. Review of Systems General: No Chills; Fatigue; No Malaise HEENT: No Head Aches, No Visual Changes Pulmonary: No Dyspnea, No Cough Cardiovascular: No: Chest Pain, Edema, Lt Headedness Gastrointestinal: No: Nausea, Abdominal Pain Genitourinary: Other (OJEDA IN PLACE) Musculoskeletal: No: neck pain, leg pain Neurological: No: Weakness, Numbness, Confusion All Other Systems Reviewed All Other Systems Reviewed: Yes Objective Exam Vital Signs Vital Signs - First Documented 05/28/20 05/29/20 21:05 02:19 Temp 37.1 Pulse 105 Resp 20 B/P (MAP) 256/145 (182) Pulse Ox 97 O2 Delivery Room Air FiO2 21 Capillary Refill : Less Than 3 Seconds General Appearance: No Apparent Distress, WD/WN, Obese HEENT: PERRL/EOMI, Normal ENT Inspection Neck: Full Range of Motion, Supple Respiratory: Chest Non Tender, Lungs Clear, Normal Breath Sounds, No Accessory Muscle Use Cardiovascular: Regular Rate, Rhythm Gastrointestinal: Normal Bowel Sounds, Non Tender, Soft Rectal: Deferred Back: No CVA Tenderness Extremity: Non Tender, No Calf Tenderness, No Pedal Edema Neurologic/Psychiatric: Alert, Oriented x3, No Motor/Sensory Deficits, Normal 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, 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 Norm as Tested Skin: Normal Color, Warm/Dry Lymphatic: No Adenopathy Results Lab Laboratory Tests 05/30/20 02:49: White Blood Count 13.3H, Red Blood Count 3.75L, Hemoglobin 11.8, Hematocrit 36, Mean Corpuscular Volume 95, Mean Corpuscular Hemoglobin 32, Mean Corpuscular Hem oglobin Concent 33, Red Cell Distribution Width 14.0, Platelet Count 227, Mean Platelet Volume 10.9, Immature Granulocyte % (Auto) 0, Neutrophils (%) (Auto) 61, Lymphocytes (%) (Auto) 32, Monocytes (%) (Auto) 6, Eosinophils (%) (Auto) 1, Basophils (%) (Auto) 0, Neutrophils # (Auto) 8.1H, Lymphocytes # (Auto) 4.2H, Monocytes # (Auto) 0.8, Eosinophils # (Auto) 0.1, Basophils # (Auto) 0.0, Immature Granulocyte # (Auto) 0.0, Sodium Level 138, Potassium Level 3.8, Chlori de Level 104, Carbon Dioxide Level 24, Anion Gap 10, Blood Urea Nitrogen 18, Creatinine 1.35H, Estimat Glomerular Filtration Rate 43, BUN/Creatinine Ratio 13, Glucose Level 103, Calcium Level 8.7, Phosphorus Level 3.8, Magnesium Level 2.1 Microbiology 05/29/20 MRSA Screen - Final, Complete MRSA not isolated Assessment/Plan Assessment/Plan Admission Dx HYPERTENSIVE CRISIS/EMERGENCY NSTEMI LEFT VENTRICULAR HYPERTROPHY TOBACCOISM MILD LEUKOCYTOSIS RENAL INSUFFICIENCY OBESITY Admission Status: Inpatient Order (span 2 midnights) Assessment and Plan HYPERTENSIVE CRISIS/EMERGENCY NSTEMI LEFT VENTRICULAR HYPERTROPHY TOBACCOISM MILD LEUKOCYTOSIS RENAL INSUFFICIENCY OBESITY HYPERTENSIVE CRISIS/EMERGENCY - PT WAS ON CARDIZEM DRIP - WEANED OFF LAST NIGHT - PT ON COREG 25MG BID, NORVASC 10MG DAILY - WILL KEEP PT OFF OF [place]/ARB THERAPY. NSTEMI - DISCUSSED WITH DR. ODONNELL - WILL CONSIDER HEART CATHETERIZATION. LEFT VENTRICULAR HYPERTROPHY - DEFER TO DR. ODONNELL TOBACCOISM - WILL CONTINUE ENCOURAGE PT TO STOP SMOKING. MILD LEUKOCYTOSIS - PERIPHERAL SMEAR PENDING RENAL INSUFFICIENCY - STOP [place]/ARB OBESITY ALLYSON WALL MD May 30, 2020 08:08
[2020-05-30 08:15] LABS: ABSOLUTE RETIC # 87 10e9/uL (24-90); BASOPHILS % (AUTO) 0 % (0-10); EOSINOPHILS % (AUTO) 1 % (0-10); HEMATOCRIT 36 % (35-52); HEMOGLOBIN 11.8 g/dL (11.5-16.0); LYMPHOCYTES # (AUTO) 4.2 10^3/uL (1.0-4.0); MEAN CORPUSCULAR HGB CONC 33 g/dL (32-36); MONOCYTES # (AUTO) 0.8 10^3/uL (0.0-1.0); MONOCYTES % (AUTO) 6 % (0-12); NEUTROPHILS % (AUTO) 61 % (42-75); RETICULOCYTE % 2.32 % (0.50-2.40)
[2020-05-30 08:19] LABS: MEAN CORPUSCULAR VOLUME 95 fL (80-99); WHITE BLOOD COUNT 13.3 10^3/uL (4.3-11.0)
[2020-05-30 08:20] LABS: EOSINOPHILS # (AUTO) 0.1 10^3/uL (0.0-0.3); LYMPHOCYTES % (AUTO) 32 % (12-44); MEAN CORPUSCULAR HEMOGLOBIN 32 pg (25-34); MEAN PLATELET VOLUME 10.9 fL (9.0-12.2); NEUTROPHILS # (AUTO) 8.1 10^3/uL (1.8-7.8); PLATELET COUNT 227 10^3/uL (130-400)
--- NOTE | 2020-05-30 08:48 | Diagnostic Imaging Report ---
INDICATION: Follow-up myocardial infarction. Hypertension. Comparison with 05/28/2020. FINDINGS: There continues to be marked enlargement of the cardiac silhouette. The lungs are well-aerated. There is no consolidated infiltrate. Pulmonary vasculature remains slightly prominent. No pneumothorax or pleural effusion. IMPRESSION: Continued cardiac enlargement with mild prominence of pulmonary vasculature. No significant overall change has occurred. Dictated by: Dictated on workstation # [id number]
[2020-05-30 08:51] LABS: BAND NEUTROPHILS 1 %; BASOPHILS % (MANUAL) 0 %; EOSINOPHILS % (MANUAL) 1 %; LYMPHOCYTES % (MANUAL) 32 %; MONOCYTES % (MANUAL) 6 %; NEUTROPHILS % (MANUAL) 60 %; RBC MORPH NORMAL
[2020-05-30] MEDS ORDERED: hydrALAZINE (APRESOLINE) 25 MG TAB PO ONE (09:00)
--- NOTE | 2020-05-30 10:08 | Diagnostic Imaging Report ---
INDICATION: Malignant hypertension. TECHNIQUE: Bilateral renal sonography was performed in the routine fashion including renal artery Doppler. FINDINGS: The right kidney measures 13.3 x 4.9 x 6.5 cm. The left kidney measures 11.3 x 5.3 x 5.7 cm. Both kidneys show no hydronephrosis or focal mass lesion. The urinary bladder is empty and therefore could not be imaged. Renal artery Doppler shows normal waveforms bilaterally with normal flow velocities. There is no sonographic evidence of renal artery stenosis. IMPRESSION: Normal sonographic appearance of the kidneys bilaterally. Renal artery Doppler shows no sonographic evidence of renal artery stenosis. Dictated by: Dictated on workstation # [id number]
--- NOTE | 2020-05-30 10:08 | Progress Note - Cardiology ---
Cardiology SOAP Progress Note Subjective: Sitting up in bed eating morning meal No c/o CP Continues to c/o SOB, but feels it is better than yesterday C/O warm, flushing sensation earlier this morning Objective: I&O/Vital Signs 05/30/20 05/30/20 05/30/20 05/30/20 06:00 06:42 07:00 07:25 Temp 35.8 Pulse 72 69 69 B/P (MAP) 171/93 (119) 153/94 (113) Pulse Ox 91 94 O2 Delivery Room Air Room Air 05/30/20 05/30/20 05/30/20 05/30/20 08:00 09:00 09:00 10:00 Pulse 77 71 84 B/P (MAP) 171/105 (127) 159/104 (122) 183/114 (137) Pulse Ox 96 91 85 O2 Delivery Room Air Room Air Room Air Room Air 05/30/20 05/30/20 05/30/20 05/30/20 11:00 12:00 12:46 13:00 Pulse 78 81 78 80 B/P (MAP) 164/99 (120) 168/99 (122) 169/117 (134) Pulse Ox 95 97 96 O2 Delivery Room Air Room Air Room Air 05/30/20 05/30/20 05/30/20 05/30/20 14:00 15:00 15:38 15:38 Temp 35.8 Pulse 73 80 80 B/P (MAP) 171/109 (129) 165/111 (129) Pulse Ox 93 93 93 O2 Delivery Room Air Room Air Room Air FiO2 21 05/30/20 05/30/20 16:00 16:00 Temp 36.9 Pulse 85 B/P (MAP) 161/95 (117) O2 Delivery Room Air 05/29/20 23:59 Intake Total 950 ml Output Total 1900 ml Balance -950 ml Weight (Pounds): 280 Weight (Ounces): 0.0 Weight (Calculated Kilograms): 127.594749 Constitutional: appears stated age, AAO x 3, well-developed, well-nourished Respiratory: chest is bilaterally symmetric, lungs clear to auscultation, rhonchi (scattered) Cardiovascular: regular rate-rhythm, S1 and S2 Gastrointestional: tender, soft, audible bowel sounds Extremities: no lower extremity edema bilateral Neurologic/Psychiatric: grossly intact (moves all extremities) Skin: normal color; No rash, No rash on exposed areas, No ulcerations on exposed areas Results/Procedures: Labs Laboratory Tests 05/30/20 02:49: White Blood Count 13.3H, Red Blood Count 3.75L, Hemoglobin 11.8, Hematocrit 36, Mean Corpuscular Volume 95, Mean Corpuscular Hemoglobin 32, Mean Corpuscular Hemoglobin Concent 33, Red Cell Distribution Width 14.0, Platelet Count 227, Me an Platelet Volume 10.9, Immature Granulocyte % (Auto) 0, Neutrophils (%) (Auto) 61, Lymphocytes (%) (Auto) 32, Monocytes (%) (Auto) 6, Eosinophils (%) (Auto) 1, Basophils (%) (Auto) 0, Neutrophils # (Auto) 8.1H, Lymphocytes # (Auto) 4.2H, Monocytes # (Auto) 0.8, Eosinophils # (Auto) 0.1, Basophils # (Auto) 0.0, Immature Granulocyte # (Auto) 0.0, Neutrophils % (Manual) 60, Lymphocytes % (Manual) 32, Monocytes % (Manual) 6, Eosinophils % (Manual) 1, Basophils % (Manu al) 0, Band Neutrophils 1, Percent Immature Platelet Fraction 4.2, Blood Morphology Comment NORMAL, Absolute Reticulocyte Count 87, Percent Reticulocyte Count 2.32, Sodium Level 138, Potassium Level 3.8, Chloride Level 104, Carbon Dioxide Level 24, Anion Gap 10, Blood Urea Nitrogen 18, Creatinine 1.35H, Estimat Glomerular Filtration Rate 43, BUN/Creatinine Ratio 13, Glucose Level 103, Calcium Level 8.7, Phosphorus Level 3.8, Magnesium Level 2.1 Microbiology 05/29/20 MRSA Screen - Final, Complete MRSA not isolated Procedures NAME: SHERMAN PRESSLEY [facility] REC#: [id number] PT STATUS: ADM IN : 1980 PHYSICIAN: NUZHAT COTTO DO ADMIT DATE: 05/28/20/ICU Draft Date of Exam:05/30/20 CHEST 1 VIEW, AP/PA ONLY INDICATION: Follow-up myocardial infarction. Hypertension. Comparison with 05/28/2020. FINDINGS: There continues to be marked enlargement of the cardiac silhouette. The lungs are well-aerated. There is no consolidated infiltrate. Pulmonary vasculature remains slightly prominent. No pneumothorax or pleural effusion. IMPRESSION: Continued cardiac enlargement with mild prominence of pulmonary vasculature. No significant overall change has occurred. Dictated on workstation # [id number] Dict: 05/30/20 0805 Trans: 05/30/[address] [facility] [id number] Interpreted by: DONNY BATES MD Electronically signed by: A/P: Assessment: SOB Uncontrolled HTN Echocardiogram of May [address] Vincent showed wall thickness mod to severely increased. Concentric hypertrophy. LVEF 45-50%. Grade 1 diastolic dysfunction. PASP 35-40 mmHg Tobaccoism - cessation advised KYM COVID (-) Obesity Plan: Uncontrolled hypertension - Continue BB and amlodipine. Add Hydralazine. Avoid [place]/ARB d/t KYM NSTEMI - advise cardiac cath, no c/o CP at this time, will proceed tomorrow or sooner if indicated, advise continuation of IVF d/t KYM likely d/t uncontrolled hypertension Advise smoking cessation Monitor lab closely Dr. Vincent's notes have been reviewed Physician Assessment Physician Assessment Our assessment and plan is as noted above I discussed her case with Dr Johnson on the phone this morning Add oral hydralazine and doxazosin to the regimen for bp control Card cath tomorrow, given troponin elevation Consider renal artery angio, given severe, uncontrolled hypertension SANTO HUFF May 30, 2020 10:08 ALEX ODONNELL MD FACP FAC CCDS May 30, 2020 17:09
[2020-05-30] MEDS: NICOTINE 14 MG (NICODERM) PATCH TD SCH (10:09)
[2020-05-30] MEDS: NICOTINE PATCH REMOVAL TP SCH (10:09)
[2020-05-30] MEDS: hydrALAZINE (APRESOLINE) 25 MG TAB PO SCH ×3 (10:25→20:09)
[2020-05-30] MEDS ORDERED: ONDA8TAB13 PO (11:11)
[2020-05-30] MEDS ORDERED: IBUP-2473 PO (11:11)
[2020-05-30] MEDS ORDERED: AMLO-250 PO (11:11)
[2020-05-30] MEDS ORDERED: POTA-51 PO (11:11)
--- NOTE | 2020-05-30 11:11 | NUR ---
SPOKE WITH THE PT (CALLED HER CELL) AND WENT THRU THE EXT MED HISTORY TO COMPLETE THE MED REC PT WAS ABLE TO NAME ALL HER MEDICATIONS WELL WHEN/HOW SHE TAKES EACH OTC MEDS: IBUPROFEN
--- NOTE | 2020-05-30 13:40 | NUR ---
"RD ASSESSMENT PMHx: HTN; PT INTERACTION: Received dietary consult for MST score. Note pt is currently in COVID isolation per chart review. Note all diet information for nutrition assessment is per Evangelina WALTERS or per chart review. Evangelina states current appetite is fine. Note avg PO intake 50% x3meal, per chart review. Evangelina states no issues with n/v/c/d that she is aware of, and that her last BM was 05/30. Note pt not currently on bowel regimen per chart review. Note unable to determine recent wt hx, per chart review. Note unable to complete visual assessment d/t isolation precautions. Note BMI of 52.9 (Obese class III for age). Given wt hx, PO intake, and visual assessment, it is difficult to determine if pt meets criteria for malnutrition per ASPEN guidelines. Est. kcal needs: 9536-4208 kcal | 25-30 kcal/kg IBW, based on IBW of 52.3 kg (115#) Est. Pro needs: 42-52 g Pro | 0.8-1.0 g Pro/kg IBW PES STATEMENT: Inadequate oral intake (NI-2.1) related to loss of appetite, as evidenced by chart review, and avg PO intake 50% x3meal. INTERVENTION: Continue with current diet order of Regular diet. Pt may benefit from nutrition supplementation if PO intake declines. Will continue to follow and reassess as pt needs, intake, and status change. Shantanu GRIFFITH, MS RD LD [phone] cell"
[2020-05-30] MEDS: doxAzosin 4 MG (CARDURA) TAB PO SCH ×2 (14:30→22:15)
[2020-05-31] VITALS (22 sets, daily range): BP systolic 133–201; BP diastolic 70–110
[2020-05-31 03:45] LABS: BASOPHILS # (AUTO) 0.1 10^3/uL (0.0-0.1); BASOPHILS % (AUTO) 1 % (0-10); EOSINOPHILS # (AUTO) 0.3 10^3/uL (0.0-0.3); EOSINOPHILS % (AUTO) 3 % (0-10); HEMATOCRIT 36 % (35-52); HEMOGLOBIN 11.9 g/dL (11.5-16.0); LYMPHOCYTES # (AUTO) 3.1 10^3/uL (1.0-4.0); LYMPHOCYTES % (AUTO) 26 % (12-44); MEAN CORPUSCULAR HEMOGLOBIN 32 pg (25-34); MEAN CORPUSCULAR HGB CONC 33 g/dL (32-36); MEAN CORPUSCULAR VOLUME 96 fL (80-99); MEAN PLATELET VOLUME 11.1 fL (9.0-12.2); MONOCYTES # (AUTO) 0.7 10^3/uL (0.0-1.0); MONOCYTES % (AUTO) 6 % (0-12); NEUTROPHILS # (AUTO) 7.7 10^3/uL (1.8-7.8); NEUTROPHILS % (AUTO) 65 % (42-75); PLATELET COUNT 225 10^3/uL (130-400)
--- NOTE | 2020-05-31 03:56 | Pulmonary Progress Note ---
Subjective Time Seen by a Provider: 03:51 Subjective/Events-last exam Plan is for heart cath today. Sepsis Event Evaluation Height, Weight, BMI Height: 5'2.00" Weight: 280lbs. 0.0oz. 127.513055cf; 52.73 BMI Method:Stated Exam Exam Vital Signs Date Time Temp Pulse Resp B/P (MAP) Pulse Ox O2 Delivery O2 Flow Rate FiO2 05/31/20 02:39 96 Room Air 05/31/20 00:07 96 Room Air 05/30/20 23:45 36.4 05/30/20 22:00 95 Room Air 05/30/20 21:00 96 Room Air 05/30/20 20:00 96 Room Air 05/30/20 19:51 37.1 05/30/20 19:00 89 05/30/20 18:00 87 171/100 (123) Room Air 05/30/20 17:00 93 Room Air 05/30/20 16:00 85 161/95 (117) Room Air 05/30/20 16:00 36.9 05/30/20 15:38 93 Room Air 05/30/20 15:38 35.8 80 93 21 05/30/20 15:00 80 165/111 (129) Room Air 05/30/20 14:00 73 171/109 (129) 93 Room Air 05/30/20 13:00 80 169/117 (134) 96 Room Air 05/30/20 12:46 78 05/30/20 12:00 81 168/99 (122) 97 Room Air 05/30/20 11:00 78 164/99 (120) 95 Room Air 05/30/20 10:00 84 183/114 (137) 85 Room Air 05/30/20 09:00 71 159/104 (122) 91 Room Air 05/30/20 09:00 96 Room Air 05/30/20 08:00 77 171/105 (127) Room Air 05/30/20 07:25 35.8 05/30/20 07:00 69 153/94 (113) 94 Room Air 05/30/20 06:42 69 05/30/20 06:00 72 171/93 (119) 91 Room Air 05/30/20 05:00 109 173/119 (137) Room Air 05/30/20 04:00 67 165/113 (130) Room Air I & O 05/31/20 07:00 Intake Total 2450 ml Output Total 4950 ml Balance -2500 ml Height & Weight Height: 5'2.00" Weight: 280lbs. 0.0oz. 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
[2020-05-31 04:01] LABS: POTASSIUM 3.8 MMOL/L (3.6-5.0)
[2020-05-31 04:02] LABS: CALCIUM 8.6 MG/DL (8.5-10.1); INR 0.9 (0.8-1.4); PROTHROMBIN TIME PATIENT 12.4 SEC (12.2-14.7)
[2020-05-31 04:06] LABS: PHOSPHORUS 2.5 MG/DL (2.3-4.7)
[2020-05-31 04:07] LABS: CREATININE SERUM 1.2 MG/DL (0.60-1.30)
[2020-05-31 04:09] LABS: MAGNESIUM 2.1 MG/DL (1.6-2.4)
[2020-05-31] MEDS: MAGNESIUM 1 GM/100 ML IVPB 100 ML IV SCH (04:18)
[2020-05-31] MEDS: POTASSIUM CL 10MEQ/50ML IVPB 50 ML IV SCH (04:18)
[2020-05-31] MEDS: KCL 20 MEQ TAB (K-DUR) PO SCH (04:19)
[2020-05-31] MEDS: NS IV 1000 ML 1,000 ML IV SCH ×2 (06:07→15:43)
[2020-05-31] MEDS: doxAzosin 4 MG (CARDURA) TAB PO SCH ×3 (06:07→20:59)
--- NOTE | 2020-05-31 07:42 | Diagnostic Imaging Report ---
INDICATION: Hypertension Portable chest 2:52 AM There is cardiomegaly. Pulmonary vascularity is normal. Lungs are clear. IMPRESSION: Cardiomegaly without evidence of pulmonary venous hypertension. No significant change compared to the previous day. Dictated by: Dictated on workstation # [id number]
[2020-05-31] MEDS: amLODIPine 10 MG (NORVASC) TAB PO SCH (08:01)
[2020-05-31] MEDS: CARVEDILOL 12.5 MG (COREG) TABLET PO SCH ×2 (08:01→19:34)
[2020-05-31] MEDS: hydrALAZINE (APRESOLINE) 25 MG TAB PO SCH ×3 (08:01→19:33)
--- NOTE | 2020-05-31 08:36 | Progress Note ---
Subjective Subjective PT IS A 39 Y/O FEMALE WHO IS KNOWN TO ME FROM CLINIC. SHE WAS EVALUATED IN THE ER AND FOUND TO HAVE SEVERE HYPERTENSIVE CRISIS AND NSTEMI. Review of Systems General: No Chills; Fatigue; No Malaise HEENT: No Head Aches, No Visual Changes Pulmonary: No Dyspnea, No Cough Cardiovascular: No: Chest Pain, Edema, Lt Headedness Gastrointestinal: No: Nausea, Abdominal Pain Genitourinary: Other (OJEDA IN PLACE) Musculoskeletal: No: neck pain, leg pain Neurological: No: Weakness, Numbness, Confusion All Other Systems Reviewed All Other Systems Reviewed: Yes Objective Exam Vital Signs Vital Signs - First Documented 05/28/20 05/29/20 21:05 02:19 Temp 37.1 Pulse 105 Resp 20 B/P (MAP) 256/145 (182) Pulse Ox 97 O2 Delivery Room Air FiO2 21 Capillary Refill : Less Than 3 Seconds General Appearance: No Apparent Distress, WD/WN, Obese HEENT: PERRL/EOMI, Normal ENT Inspection Neck: Full Range of Motion, Supple Respiratory: Chest Non Tender, Lungs Clear, Normal Breath Sounds, No Accessory Muscle Use Cardiovascular: Regular Rate, Rhythm Gastrointestinal: Normal Bowel Sounds, Non Tender, Soft Rectal: Deferred Back: No CVA Tenderness Extremity: Non Tender, No Calf Tenderness, No Pedal Edema Neurologic/Psychiatric: Alert, Oriented x3, No Motor/Sensory Deficits, Normal 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, 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 Tested Skin: Normal Color, Warm/Dry Lymphatic: No Adenopathy Results Lab Laboratory Tests 05/31/20 03:24: White Blood Count 12.0H, Red Blood Count 3.74L, Hemoglobin 11.9, Hematocrit 36, Mean Corpuscular Volume 96, Mean Corpuscular Hemoglobin 32, Mean Corpuscular Hemoglobin Concent 33, Red Cell Distribution Width 14.2, Platelet Count 225, Mean Platelet Volume 11.1, Immature Granulocyte % (Auto) 0, Neutrophils (%) (Auto) 65, Lymphocytes (%) (Auto) 26, Monocytes (%) (Auto) 6, Eosinophils (%) (Auto) 3, Basophils (%) (Auto) 1, Neutrophils # (Auto) 7.7, Lymphocytes # (Auto) 3.1, Monocytes # (Auto) 0.7, Eosinophils # (Auto) 0.3, Basophils # (Auto) 0.1, Immature Granulocyte # (Auto) 0.0, Prothrombin Time 12.4, INR Comment 0.9, Activated Partial Thromboplast Time 28, Sodium Level 138, Potassium Level 3.8, Chloride Level 107, Carbon Dioxide Level 22, Anion Gap 9, Blood Urea Nitrogen 16, Creatinine 1.20, Estimat Glomerular Filtration Rate 50, BUN/Creatinine Ratio 13, Glucose Level 102, Calcium Level 8.6, Phosphorus Level 2.5, Magnesium Level 2.1, Procalcitonin 0.02 05/31/20 07:24: Microbiology 05/29/20 MRSA Screen - Final, Complete MRSA not isolated Assessment/Plan Assessment/Plan Admission Dx HYPERTENSIVE CRISIS/EMERGENCY NSTEMI LEFT VENTRICULAR HYPERTROPHY TOBACCOISM MILD LEUKOCYTOSIS RENAL INSUFFICIENCY OBESITY Assessment and Plan HYPERTENSIVE CRISIS/EMERGENCY NSTEMI LEFT VENTRICULAR HYPERTROPHY TOBACCOISM MILD LEUKOCYTOSIS RENAL INSUFFICIENCY OBESITY HYPERTENSIVE CRISIS/EMERGENCY - PT WAS ON CARDIZEM DRIP - WEANED OFF 05/29/2020 - PT ON COREG 25MG BID, NORVASC 10MG DAILY, HYDRALAZINE 50MG TID AND CARDURA 4MG TID - WILL KEEP PT OFF OF [place]/ARB THERAPY. - RENAL ARTERY DOPPLER NEGATIVE - REPORT FOLLOWS: IMPRESSION: Normal sonographic appearance of the kidneys bilaterally. Renal artery Doppler shows no sonographic evidence of renal artery stenosis. NSTEMI - DISCUSSED WITH DR. ODONNELL - WILL CONSIDER HEART CATHETERIZATION. - PT ON SCHEDULE FOR CATH TODAY LEFT VENTRICULAR HYPERTROPHY - DEFER TO DR. ODONNELL TOBACCOISM - WILL CONTINUE ENCOURAGE PT TO STOP SMOKING. MILD LEUKOCYTOSIS - PERIPHERAL SMEAR PENDING RENAL INSUFFICIENCY - STOP [place]/ARB OBESITY Admission Dx HYPERTENSIVE CRISIS/EMERGENCY NSTEMI LEFT VENTRICULAR HYPERTROPHY TOBACCOISM MILD LEUKOCYTOSIS RENAL INSUFFICIENCY OBESITY Clinical Quality Measures Admission Status Admission Dx HYPERTENSIVE CRISIS/EMERGENCY NSTEMI LEFT VENTRICULAR HYPERTROPHY TOBACCOISM MILD LEUKOCYTOSIS RENAL INSUFFICIENCY OBESITY ALLYSON WALL MD May 31, 2020 08:36
[2020-05-31] MEDS: NICOTINE PATCH REMOVAL TP SCH (09:00)
--- NOTE | 2020-05-31 09:21 | Progress Note - Cardiology ---
Cardiology SOAP Progress Note Subjective: Sitting up on the side of the bed No c/o CP Continued SOB which is somewhat better C/O WILKINS this morning Objective: I&O/Vital Signs 05/30/20 05/30/20 05/30/20 05/30/20 22:00 22:12 23:00 23:45 Temp 36.4 Pulse 78 79 B/P (MAP) 183/110 (134) 147/89 (108) Pulse Ox 95 O2 Delivery Room Air Room Air Room Air 05/31/20 05/31/20 05/31/20 05/31/20 00:00 00:07 01:00 01:53 Pulse 80 78 92 B/P (MAP) 147/85 (105) 158/90 (112) Pulse Ox 96 O2 Delivery Room Air Room Air Room Air 05/31/20 05/31/20 05/31/20 05/31/20 02:00 02:00 02:39 03:00 Pulse 78 76 B/P (MAP) 159/82 (107) 165/99 (121) Pulse Ox 95 96 O2 Delivery Room Air Room Air Room Air Room Air 05/31/20 05/31/20 05/31/20 05/31/20 04:00 04:00 05:00 06:00 Temp 36.3 Pulse 85 79 88 B/P (MAP) 162/96 (118) 172/92 (118) 201/103 (135) Pulse Ox 94 O2 Delivery Room Air Room Air Room Air Room Air 05/31/20 05/31/20 05/31/20 05/31/20 06:36 06:55 07:00 08:00 Pulse 78 73 78 B/P (MAP) 171/103 (125) 179/110 (133) Pulse Ox 94 O2 Delivery Room Air Room Air Room Air 05/31/20 00:00 Intake Total 1550 ml Output Total 2850 ml Balance -1300 ml Weight (Pounds): 280 Weight (Ounces): 0.0 Weight (Calculated Kilograms): 127.777102 Constitutional: appears stated age, AAO x 3, well-developed, well-nourished Respiratory: chest is bilaterally symmetric, lungs clear to auscultation, rhonchi (scattered) Cardiovascular: regular rate-rhythm, S1 and S2 Gastrointestional: tender, soft, audible bowel sounds Extremities: no lower extremity edema bilateral Neurologic/Psychiatric: grossly intact (moves all extremities) Skin: normal color; No rash, No rash on exposed areas, No ulcerations on ex posed areas Results/Procedures: Labs Laboratory Tests 05/31/20 03:24: White Blood Count 12.0H, Red Blood Count 3.74L, Hemoglobin 11.9, Hematocrit 36, Mean Corpuscular Volume 96, Mean Corpuscular Hemoglobin 32, Mean Corpuscular Hemoglobin Concent 33, Red Cell Distribution Width 14.2, Platelet Count 225, Mean Platelet Volume 11.1, Immature Granulocyte % (Auto) 0, Neutrophils (%) (Auto) 65, Lymphocytes (%) (Auto) 26, Monocytes (%) (Auto) 6, Eosinophils (%) (Auto) 3, Basophils (%) (Auto) 1, Neutrophils # (Auto) 7.7, Lymphocytes # (Auto) 3.1, Monocytes # (Auto) 0.7, Eosinophils # (Auto) 0.3, Basophils # (Auto) 0.1, Immature Granulocyte # (Auto) 0.0, Prothrombin Time 12.4, INR Comment 0.9, Activated Partial Thromboplast Time 28, Sodium Level 138, Potassium Level 3.8, Chloride Level 107, Carbon Dioxide Level 22, Anion Gap 9, Blood Urea Nitrogen 16, Creatinine 1.20, Estimat Glomerular Filtration Rate 50, BUN/Creatinine Ratio 13, Glucose Level 102, Calcium Level 8.6, Phosphorus Level 2.5, Magnesium Level 2.1, Procalcitonin 0.02 05/31/20 07:24: Microbiology 05/29/20 MRSA Screen - Final, Complete MRSA not isolated A/P: Assessment: SOB Uncontrolled HTN Echocardiogram of May [address] Vincent showed wall thickness mod to severely increased. Concentric hypertrophy. LVEF 45-50%. Grade 1 diastolic dysfunction. PASP 35-40 mmHg Tobaccoism - cessation advised KYM COVID (-) Obesity Plan: Uncontrolled hypertension - Continue BB and amlodipine. Continue Hydralazine. Avoid [place]/ARB d/t KYM NSTEMI - advise cardiac cath, no c/o CP at this time, will proceed tomorrow or sooner if indicated, advise continuation of IVF d/t KYM likely d/t uncontrolled hypertension Advise smoking cessation Monitor lab closely SANTO HUFF May 31, 2020 09:21
[2020-05-31] MEDS ORDERED: HEParin (CATH LAB) 2,000 ML IV ONE (13:14)
[2020-05-31] MEDS ORDERED: LIDOCAINE 1% INJ 20 ML 20 ML VIAL ONE (13:14)
[2020-05-31] MEDS ORDERED: MIDAZOLAM 5 MG/5 ML (VERSED) VIAL ONE (13:56)
[2020-05-31] MEDS ORDERED: fentaNYL INJECTION 100 MCG/2 ML AMP ONE (13:57)
--- NOTE | 2020-05-31 15:06 | Progress Note - Cardiology ---
Cardiology SOAP Progress Note Subjective: No cp Shortness of breath is better No palp or syncope No n/v/d Gen malaise present but better Objective: I&O/Vital Signs 05/31/20 05/31/20 05/31/20 05/31/20 03:00 04:00 04:00 05:00 Temp 36.3 Pulse 76 85 79 B/P (MAP) 165/99 (121) 162/96 (118) 172/92 (118) Pulse Ox 94 O2 Delivery Room Air Room Air Room Air Room Air 05/31/20 05/31/20 05/31/20 05/31/20 06:00 06:36 06:55 07:00 Pulse 88 78 73 B/P (MAP) 201/103 (135) 171/103 (125) Pulse Ox 94 O2 Delivery Room Air Room Air Room Air 05/31/20 05/31/20 05/31/20 05/31/20 08:00 09:00 09:00 10:00 Pulse 78 79 B/P (MAP) 179/110 (133) 133/76 (95) 141/75 (97) Pulse Ox 98 O2 Delivery Room Air Room Air Room Air Room Air 05/31/20 05/31/20 05/31/20 05/31/20 11:00 11:29 12:00 13:00 Temp 36.8 B/P (MAP) 165/92 (116) 158/94 (115) 161/99 (119) Pulse Ox 96 94 O2 Delivery Room Air Room Air Room Air 05/31/20 00:00 Intake Total 1550 ml Output Total 2850 ml Balance -1300 ml Weight (Pounds): 280 Weight (Ounces): 0.0 Weight (Calculated Kilograms): 127.375225 Constitutional: appears stated age, AAO x 3, well-developed, well-nourished Respiratory: chest is bilaterally symmetric, lungs clear to auscultation, rhonchi (scattered) Cardiovascular: regular rate-rhythm, S1 and S2 Gastrointestional: tender, soft, audible bowel sounds Extremities: no lower extremity edema bilateral Neurologic/Psychiatric: grossly intact (moves all extremities) Skin: normal color; No rash, No rash on exposed areas, No ulcerations on exposed areas Results/Procedures: Labs Laboratory Tests 05/31/20 03:24: White Blood Count 12.0H, Red Blood Count 3.74L, Hemoglobin 11.9, Hematocrit 36, Mean Corpuscular Volume 96, Mean Corpuscular Hemoglobin 32, Mean Corpuscular Hemoglobin Concent 33, Red Cell Distribution Width 14.2, Platelet Count 225, Mean Platelet Volume 11.1, Immature Granulocyte % (Auto) 0, Neutrophils (%) (Auto) 65, Lymphocytes (%) (Auto) 26, Monocytes (%) (Auto) 6, Eosinophils (%) (Auto) 3, Basophils (%) (Auto) 1, Neutrophils # (Auto) 7.7, Lymphocytes # (Auto) 3.1, Monocytes # (Auto) 0.7, Eosinophils # (Auto) 0.3, Basophils # (Auto) 0.1, Immature Granulocyte # (Auto) 0.0, Prothrombin Time 12.4, INR Comment 0.9, Activated Partial Thromboplast Time 28, Sodium Level 138, Potassium Level 3.8, Chloride Level 107, Carbon Dioxide Level 22, Anion Gap 9, Blood Urea Nitrogen 16, Creatinine 1.20, Estimat Glomerular Filtration Rate 50, BUN/Creatinine Ratio 13, Glucose Level 102, Calcium Level 8.6, Phosphorus Level 2.5, Magnesium Level 2.1, Procalcitonin 0.02 05/31/20 07:24: Microbiology 05/29/20 MRSA Screen - Final, Complete MRSA not isolated A/P: Assessment: Severe hypertension with hypertensive cardiovascular disease SOB, likely due to ac diastolic CHF due to uncontrolled hypertension Minimal troponin elevation: type 2 DE due to uncontrolled hypertension KYM-1 probably due to uncontrolled hypertension Card cath and renal a angio on 05/31/20: no significant CAD, LVEDP 36 mmHg, LVEF 60-65%, no renal artery stenosis Echocardiogram of May [address] Vincent showed wall thickness mod to severely increased. Concentric hypertrophy. LVEF 45-50%. Grade 1 diastolic dysfunction. PASP 35-40 mmHg Tobaccoism - cessation advised Obesity Plan: Advise smoking cessation Monitor lab closely Continue antihypertensive therapy I explained the result of the cardiac w/u to the patient I spoke with Dr Johnson on the phone and discussed the case with her ALEX ODONNELL MD FACP FAC CCDS May 31, 2020 15:06
[2020-05-31] MEDS ORDERED: PATIENT MAY USE OWN MEDS, ALL PO SCH (15:15)
[2020-05-31] MEDS: ACETAMINOPHEN 325 MG TABLET PO PRN (16:17)
--- NOTE | 2020-05-31 17:48 | CARDIAC CATHETERIZATION ---
DATE OF SERVICE: 05/31/2020 CARDIAC CATHETERIZATION REPORT INDICATION FOR PROCEDURE: The patient is a 39-year-old lady, who was admitted with uncontrolled hypertension and shortness of breath. Troponin was elevated and suggestive of acute non-ST elevation myocardial infarction. Cardiac catheterization was carried out today after having obtained an informed consent for cardiac catheterization. Also, given that she has required five or more antihypertensive to control her hypertension, renal artery stenosis was a consideration and informed consent was obtained for renal artery angiography and abdominal aortic angiography, as well. DESCRIPTION OF PROCEDURE: She was brought to the cardiac catheterization laboratory in a fasting state. The right groin was prepared and draped in the usual sterile fashion. Lidocaine 1% was used for local anesthesia. Modified Seldinger technique was used to advance a 5-Qatari sheath in the right femoral artery. A 5-Qatari JL4 catheter was used for left coronary angiography. A 5-Qatari JR4 catheter was used for right coronary angiography. A 5-Qatari JR4 catheter was used for selective angiography of the left renal artery. We were not able to engage the right renal artery with this catheter. The catheter was removed. We advanced a 5-Qatari pigtail catheter to carry out left heart catheterization and left ventricular angiography. The catheter was then pulled down to the level of the abdominal aorta at the level of L1 and abdominal aortic angiography was performed, which did clearly delineate the right renal artery. The catheter was removed. Angiography of the right femoral artery was carried out through the sheath. Mynx was used to achieve hemostasis. She tolerated the procedure well. HEMODYNAMICS: Left ventricular end-diastolic pressure following coronary angiography was 36 mmHg. There was no significant pressure gradient on pullback across the aortic valve. The ascending aortic pressure was 127/87 with a mean of 105 mmHg. CORONARY ANGIOGRAPHY: Left main coronary artery is free of significant disease. Left anterior descending artery is free of significant disease. Left circumflex artery is free of significant disease. Right coronary artery is dominant and free of significant disease. LEFT VENTRICULAR ANGIOGRAPHY: Left ventricular angiography was carried out in the right anterior oblique projection. Global left ventricular systolic function is normal. No regional wall motion abnormality is seen. Left ventricular ejection fraction is 60% to 65%. ABDOMINAL AORTIC ANGIOGRAPHY: Abdominal aortic angiography did not indicate any significant abdominal aortic aneurysm or dissection. Renal arteries are identified. No significant renal artery stenosis was seen on the either side. Prior to abdominal aortic angiography, the left renal artery was also selectively engaged and the renal artery was found to be angiographically normal. CONCLUSIONS: 1. No angiographically significant coronary artery disease. 2. Elevated left ventricular end-diastolic pressure indicative of diastolic dysfunction of left ventricle due to the uncontrolled hypertension. 3. Normal global left ventricular systolic function with an ejection fraction of 60% to 65%. 4. No renal artery stenosis. DISCUSSION AND RECOMMENDATIONS: Based on the results of the study, it appears appropriate to continue for hypertension. Outpatient followup is advised. Job ID: [id number] DocumentID: [id number] Dictated Date: 05/31/2020 14:56:26 Field Marketing Coordinator Date: 05/31/2020 17:47:24 Dictated By: ALEX ODONNELL MD, MA, FACP, FACC,
[2020-05-31] MEDS: NICOTINE 14 MG (NICODERM) PATCH TD SCH (19:34)
[2020-06-01] VITALS (8 sets, daily range): BP systolic 153–174; BP diastolic 86–111
[2020-06-01] MEDS: ACETAMINOPHEN 325 MG TABLET PO PRN (02:32)
[2020-06-01] MEDS: NS IV 1000 ML 1,000 ML IV SCH ×2 (02:33→05:31)
[2020-06-01 03:51] LABS: BASOPHILS % (AUTO) 0 % (0-10); EOSINOPHILS # (AUTO) 0.3 10^3/uL (0.0-0.3); EOSINOPHILS % (AUTO) 3 % (0-10); HEMATOCRIT 37 % (35-52); HEMOGLOBIN 11.6 g/dL (11.5-16.0); LYMPHOCYTES # (AUTO) 2.7 10^3/uL (1.0-4.0); LYMPHOCYTES % (AUTO) 27 % (12-44); MEAN CORPUSCULAR HEMOGLOBIN 30 pg (25-34); MEAN CORPUSCULAR HGB CONC 32 g/dL (32-36); MEAN CORPUSCULAR VOLUME 96 fL (80-99); MEAN PLATELET VOLUME 11.2 fL (9.0-12.2); MONOCYTES # (AUTO) 0.5 10^3/uL (0.0-1.0); MONOCYTES % (AUTO) 5 % (0-12); NEUTROPHILS # (AUTO) 6.4 10^3/uL (1.8-7.8); NEUTROPHILS % (AUTO) 64 % (42-75); PLATELET COUNT 224 10^3/uL (130-400)
[2020-06-01 04:03] LABS: POTASSIUM 3.7 MMOL/L (3.6-5.0)
[2020-06-01 04:05] LABS: CALCIUM 8.4 MG/DL (8.5-10.1)
[2020-06-01 04:09] LABS: CREATININE SERUM 1.27 MG/DL (0.60-1.30)
[2020-06-01 04:11] LABS: MAGNESIUM 2.1 MG/DL (1.6-2.4)
[2020-06-01] MEDS: KCL 20 MEQ TAB (K-DUR) PO SCH (04:22)
[2020-06-01] MEDS: MAGNESIUM 1 GM/100 ML IVPB 100 ML IV SCH (04:22)
[2020-06-01] MEDS: POTASSIUM CL 10MEQ/50ML IVPB 50 ML IV SCH (04:22)
[2020-06-01] MEDS: doxAzosin 4 MG (CARDURA) TAB PO SCH (05:30)
--- NOTE | 2020-06-01 05:51 | Pulmonary Progress Note ---
Subjective Time Seen by a Provider: 05:50 Subjective/Events-last exam No complications noted. Sepsis Event Evaluation Height, Weight, BMI Height: 5'2.00" Weight: 280lbs. 0.0oz. 127.817364jj; 52.73 BMI Method:Stated Exam Exam Vital Signs Date Time Temp Pulse Resp B/P (MAP) Pulse Ox O2 Delivery O2 Flow Rate FiO2 06/01/20 04:00 36.0 Room Air 06/01/20 02:00 85 160/91 (114) 94 Room Air 06/01/20 01:00 80 06/01/20 01:00 80 153/88 (109) 96 Room Air 06/01/20 00:00 80 157/96 (109) 96 Room Air 05/31/20 23:10 36.7 Room Air 05/31/20 23:00 75 153/91 (103) 96 Room Air 05/31/20 22:00 78 137/70 (92) 94 Room Air 05/31/20 21:00 81 143/80 (107) 91 Room Air 05/31/20 20:00 92 Room Air 05/31/20 20:00 81 167/91 (116) 90 Room Air 05/31/20 19:35 36.5 Room Air 05/31/20 19:25 Room Air 05/31/20 19:22 92 Room Air 05/31/20 19:08 70 05/31/20 19:00 84 161/101 (121) Room Air 05/31/20 18:00 83 147/88 (107) 94 Room Air 05/31/20 17:00 90 155/81 (105) 93 Room Air 05/31/20 16:31 36.6 05/31/20 16:00 80 136/78 (97) 91 Room Air 05/31/20 13:00 161/99 (119) 94 Room Air 05/31/20 12:00 158/94 (115) 96 Room Air 05/31/20 11:29 36.8 05/31/20 11:00 165/92 (116) Room Air 05/31/20 10:00 141/75 (97) Room Air 05/31/20 09:00 98 Room Air 05/31/20 09:00 79 133/76 (95) Room Air 05/31/20 08:00 78 179/110 (133) Room Air 05/31/20 07:00 73 171/103 (125) Room Air 05/31/20 06:55 94 Room Air 05/31/20 06:36 78 05/31/20 06:00 88 201/103 (135) Room Air I & O 06/01/20 07:00 Intake Total 2400 ml Output Total 2450 ml Balance -50 ml Height & Weight Height: 5'2.00" Weight: 280lbs. 0.0oz. 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 DAHIANA FISHER DO Jun 01, 2020 05:51
--- NOTE | 2020-06-01 07:08 | Diagnostic Imaging Report ---
INDICATION: Myocardial infarction. Comparison with 05/31/2020. FINDINGS: Cardiomegaly is again noted. There is now obscuration of the left hemidiaphragm with some infiltrate noted in the right lung base. The upper lungs remain clear without evidence of pulmonary edema. No pneumothorax. Could not exclude left basilar effusion. IMPRESSION: 1. Marked enlargement cardiac silhouette again noted. 2. Developing bibasilar infiltrates with possible left lower lobe pleural effusion as well. Dictated by: Dictated on workstation # [id number]
[2020-06-01] MEDS: CARVEDILOL 12.5 MG (COREG) TABLET PO SCH (08:12)
[2020-06-01] MEDS: amLODIPine 10 MG (NORVASC) TAB PO SCH (08:12)
[2020-06-01] MEDS: hydrALAZINE (APRESOLINE) 25 MG TAB PO SCH (08:12)
[2020-06-01] MEDS: NICOTINE 14 MG (NICODERM) PATCH TD SCH (08:12)
[2020-06-01] MEDS: NICOTINE PATCH REMOVAL TP SCH (08:12)
--- NOTE | 2020-06-01 08:27 | Progress Note - Cardiology ---
Cardiology SOAP Progress Note Subjective: Sitting up in bed Wants to go home Feels SOB has improved No c/o CP, palpitations No c/o right groin discomfort Objective: I&O/Vital Signs 05/31/20 05/31/20 05/31/20 05/31/20 21:00 22:00 23:00 23:10 Temp 36.7 Pulse 81 78 75 B/P (MAP) 143/80 (107) 137/70 (92) 153/91 (103) Pulse Ox 91 94 96 O2 Delivery Room Air Room Air Room Air Room Air 06/01/20 06/01/20 06/01/20 06/01/20 00:00 01:00 01:00 02:00 Pulse 80 80 80 85 B/P (MAP) 157/96 (109) 153/88 (109) 160/91 (114) Pulse Ox 96 96 94 O2 Delivery Room Air Room Air Room Air 06/01/20 06/01/20 06/01/20 06/01/20 03:00 04:00 04:00 05:00 Temp 36.0 Pulse 80 73 89 B/P (MAP) 158/87 (110) 164/86 (112) 170/98 (122) Pulse Ox 96 95 94 O2 Delivery Room Air Room Air Room Air Room Air 06/01/20 06/01/20 06/01/20 06/01/20 06:00 06:34 06:40 08:00 Temp 36.8 Pulse 87 72 96 B/P (MAP) 174/111 (132) Pulse Ox 96 O2 Delivery Room Air 06/01/20 00:00 Intake Total 950 ml Output Total 1500 ml Balance -550 ml Weight (Pounds): 280 Weight (Ounces): 0.0 Weight (Calculated Kilograms): 127.844440 Side: right Condition: DP/PT pulses palpable, extremity w/d/p Bruising: mild bruising Constitutional: appears stated age, AAO x 3, well-developed, well-nourished Respiratory: chest is bilaterally symmetric, lungs clear to auscultation, rhonchi (scattered) Cardiovascular: regular rate-rhythm, S1 and S2 Gastrointestional: tender, soft, audible bowel sounds Extremities: no lower extremity edema bilateral Neurologic/Psychiatric: grossly intact (moves all extremities) Skin: normal color; No rash, No rash on exposed areas, No ulcerations on exposed areas Results/Procedures: Labs Laboratory Tests 06/01/20 03:00: White Blood Count 10.0, Red Blood Count 3.81, Hemoglobin 11.6, Hematocrit 37, Mean Corpuscular Volume 96, Mean Corpuscular Hemoglobin 30, Mean Corpuscular Hemoglobin Concent 32, Red Cell Distribution Width 14.2, Platelet Count 224, Mean Platelet Volume 11.2, Immature Granulocyte % (Auto) 0, Neutrophils (%) (Auto) 64, Lymphocytes (%) (Auto) 27, Monocytes (%) (Auto) 5, Eosinophils (%) (Auto) 3, Basophils (%) (Auto) 0, Neutrophils # (Auto) 6.4, Lymphocytes # (Auto) 2.7, Monocytes # (Auto) 0.5, Eosinophils # (Auto) 0.3, Basophils # (Auto) 0.0, Immature Granulocyte # (Auto) 0.0 06/01/20 03:30: Sodium Level 136, Potassium Level 3.7, Chloride Level 106, Carbon Dioxide Level 21, Anion Gap 9, Blood Urea Nitrogen 17, Creatinine 1.27, Estimat Glomerular Filtration Rate 46, BUN/Creatinine Ratio 13, Glucose Level 101, Calcium Level 8.4L, Phosphorus Level 3.0, Magnesium Level 2.1 Microbiology 05/29/20 MRSA Screen - Final, Complete MRSA not isolated Laboratory Tests 05/31/20 03:24 06/01/20 03:00 06/01/20 03:30 Procedures NAME: SHERMAN PRESSLEY [facility] REC#: [id number] PT STATUS: ADM IN : 1980 PHYSICIAN: NUZHAT COTTO DO ADMIT DATE: 05/28/20/ICU Signed Date of Exam:06/01/20 CHEST 1 VIEW, AP/PA ONLY INDICATION: Myocardial infarction. Comparison with 05/31/2020. FINDINGS: Cardiomegaly is again noted. There is now obscuration of the left hemidiaphragm with some infiltrate noted in the right lung base. The upper lungs remain clear without evidence of pulmonary edema. No pneumothorax. Could not exclude left basilar effusion. IMPRESSION: 1. Marked enlargement cardiac silhouette again noted. 2. Developing bibasilar infiltrates with possible left lower lobe pleural effusion as well. Dictated by: Dictated on workstation # [id number] Dict: 06/01/20 0704 Trans: 06/01/20 0750 CV [id number] Interpreted by: DONNY BATES MD Electronically signed by: DONNY BATES MD 06/01/20 6970 A/P: Assessment: Severe hypertension with hypertensive cardiovascular disease SOB, likely due to ac diastolic CHF due to uncontrolled hypertension Minimal troponin elevation: type 2 DE due to uncontrolled hypertension KYM-1 probably due to uncontrolled hypertension Card cath and renal a angio on 05/31/20: no significant CAD, LVEDP 36 mmHg, LVEF 60-65%, no renal artery stenosis Echocardiogram of May [address] Vincent showed wall thickness mod to severely increased. Concentric hypertrophy. LVEF 45-50%. Grade 1 diastolic dysfunction. PASP 35-40 mmHg Tobaccoism - cessation advised Obesity Plan: Advise smoking cessation Monitor lab closely Continue antihypertensive therapy Advise out pt f/u in 2 weeks Advise BMP and Mag level next week SANTO HUFF Jun 01, 2020 08:27
--- NOTE | 2020-06-01 08:40 | Discharge Summary ---
Diagnosis/Chief Complaint Date of Admission May 28, 2020 at 23:23 Date of Discharge Discharge Summary Discharge Physical Examination Allergies: Coded Allergies: codeine (Verified Allergy, Unknown, 10/08/07) Vitals & I&Os Vital Signs Date Time Temp Pulse Resp B/P (MAP) Pulse Ox O2 Delivery O2 Flow Rate FiO2 06/01/20 08:27 98 Room Air 06/01/20 08:00 36.8 06/01/20 06:40 96 06/01/20 06:00 174/111 (132) 05/30/20 15:38 21 05/29/20 00:00 20 Hospital Course Pending Labs Laboratory Tests 06/01/20 03:00: White Blood Count 10.0, Red Blood Count 3.81, Hemoglobin 11.6, Hematocrit 37, Mean Corpuscular Volume 96, Mean Corpuscular Hemoglobin 30, Mean Corpuscular He moglobin Concent 32, Red Cell Distribution Width 14.2, Platelet Count 224, Mean Platelet Volume 11.2, Immature Granulocyte % (Auto) 0, Neutrophils (%) (Auto) 64, Lymphocytes (%) (Auto) 27, Monocytes (%) (Auto) 5, Eosinophils (%) (Auto) 3, Basophils (%) (Auto) 0, Neutrophils # (Auto) 6.4, Lymphocytes # (Auto) 2.7, Monocytes # (Auto) 0.5, Eosinophils # (Auto) 0.3, Basophils # (Auto) 0.0, Immature Granulocyte # (Auto) 0.0 06/01/20 03:30: Sodium Level 136, Potassium Level 3.7, Chloride Level 106, Carbon Dioxide Level 21, Anion Gap 9, Blood Urea Nitrogen 17, Creatinine 1.27, Estimat Glomerular Filtration Rate 46, BUN/Creatinine Ratio 13, Glucose Level 101, Calcium Level 8.4, Phosphorus Level 3.0, Magnesium Level 2.1 Discharge Instructions to patient/family Please see electronic discharge instructions given to patient. Discharge Medications Reviewed and agree with Discharge Medication list on patient's Discharge Instruction sheet ALLYSON WALL MD Jun 01, 2020 08:39
[2020-06-01] MEDS ORDERED: HYDR-3924 PO (08:43)
[2020-06-01] MEDS ORDERED: DOXA4TAB2 PO (08:43)
[2020-06-01] MEDS ORDERED: AMLO-251 PO (08:43)
[2020-06-01] MEDS ORDERED: CARV25TA PO (08:43)
[2020-06-01] MEDS ORDERED: TRIA1TAB5 PO (08:43)
[2020-06-01] MEDS ORDERED: NICO1PAT38 TD (08:45)
--- NOTE | 2020-06-01 08:48 | Discharge Inst-Simple/Standard ---
Discharge Inst-Standard Reconcile Patient Problems Problems Reviewed?: Yes Discharge Medications New, Converted or Re-Newed RX: Transmitted to Pharmacy Patient Instructions/Follow Up Plan of Care/Instructions/FU: 1 WK [facility] 1-2 WK WITH CARDIOLOGY STAY OFF OF WORK UNTIL 06/06/2020 Activity as Tolerated: Yes Discharge Diet: Low Sodium Diet, Avoid Fatty Foods Return to The Hospital For: ANY RECURRENT CHEST PAIN - BLOOD PRESSURE THAT WILL NOT IMPROVE BELOW 190 SYSTOLIC OR 110 DIASTOLIC (190/110) OR ANY CONCERN FOR LIFETHREATENING ILLNESS OR INJURY Medication List: Active Scripts Active Nicoderm Cq (Nicotine) 1 Each Patch.td24 14 Mg TD DAILY@0900 Triamterene-Hctz 75-50 mg Tab (Triamterene/Hydrochlorothiazid) 1 Each Tablet 1 Ea PO DAILY Amlodipine Besylate 10 Mg Tablet 10 Mg PO DAILY Carvedilol 25 Mg Tablet 25 Mg PO BID Doxazosin Mesylate 4 Mg Tablet 4 Mg PO Q8HR Hydralazine HCl 50 Mg Tablet 50 Mg PO TID Reported Ibuprofen 200 Mg Tablet 400-600 Mg PO Q8H PRN Potassium Chloride 20 Meq Tablet.er 20 Meq PO DAILY Ondansetron Odt (Ondansetron) 8 Mg Tab.rapdis 8 Mg PO Q4H PRN Lab results: Laboratory Tests Test 06/01/20 03:00 06/01/20 03:30 Range/Units White Blood Count 10.0 4.3-11.0 10^3/uL Red Blood Count 3.81 3.80-5.11 10^6/uL Hemoglobin 11.6 11.5-16.0 g/dL Hematocrit 37 35-52 % Mean Corpuscular Volume 96 80-99 fL Mean Corpuscular Hemoglobin 30 25-34 pg Mean Corpuscular Hemoglobin Concent 32 32-36 g/dL Red Cell Distribution Width 14.2 10.0-14.5 % Platelet Count 224 130-400 10^3/uL Mean Platelet Volume 11.2 9.0-12.2 fL Immature Granulocyte % (Auto) 0 % Neutrophils (%) (Auto) 64 42-75 % Lymphocytes (%) (Auto) 27 12-44 % Monocytes (%) (Auto) 5 0-12 % Eosinophils (%) (Auto) 3 0-10 % Basophils (%) (Auto) 0 0-10 % Neutrophils # (Auto) 6.4 1.8-7.8 10^3/uL Lymphocytes # (Auto) 2.7 1.0-4.0 10^3/uL Monocytes # (Auto) 0.5 0.0-1.0 10^3/uL Eosinophils # (Auto) 0.3 0.0-0.3 10^3/uL Basophils # (Auto) 0.0 0.0-0.1 10^3/uL Immature Granulocyte # (Auto) 0.0 0.0-0.1 10^3/uL Sodium Level 136 135-145 MMOL/L Potassium Level 3.7 3.6-5.0 MMOL/L Chloride Level 106 98-107 MMOL/L Carbon Dioxide Level 21 21-32 MMOL/L Anion Gap 9 5-14 MMOL/L Blood Urea Nitrogen 17 7-18 MG/DL Creatinine 1.27 0.60-1.30 MG/DL Estimat Glomerular Filtration Rate 46 BUN/Creatinine Ratio 13 Glucose Level 101 70-105 MG/DL Calcium Level 8.4 L 8.5-10.1 MG/DL Phosphorus Level 3.0 2.3-4.7 MG/DL Magnesium Level 2.1 1.6-2.4 MG/DL ALLYSON WALL MD Jun 01, 2020 08:48
[2020-06-01] MEDS ORDERED: TRIAMTERENE/HCTZ 75-50 (MAXZIDE,DYAZIDE) TABLET PO SCH (09:00)
--- NOTE | 2020-06-01 10:21 | Progress Note - Cardiology ---
Cardiology SOAP Progress Note Subjective: Feels well No shortness of breath at rest No palp No syncope No cp No swelling No n/v/d Objective: I&O/Vital Signs 05/31/20 05/31/20 06/01/20 06/01/20 23:00 23:10 00:00 01:00 Temp 36.7 Pulse 75 80 80 B/P (MAP) 153/91 (103) 157/96 (109) 153/88 (109) Pulse Ox 96 96 96 O2 Delivery Room Air Room Air Room Air Room Air 06/01/20 06/01/20 06/01/20 06/01/20 01:00 02:00 03:00 04:00 Temp 36.0 Pulse 80 85 80 B/P (MAP) 160/91 (114) 158/87 (110) Pulse Ox 94 96 O2 Delivery Room Air Room Air Room Air 06/01/20 06/01/20 06/01/20 06/01/20 04:00 05:00 06:00 06:34 Pulse 73 89 87 72 B/P (MAP) 164/86 (112) 170/98 (122) 174/111 (132) Pulse Ox 95 94 96 O2 Delivery Room Air Room Air Room Air 06/01/20 06/01/20 06/01/20 06/01/20 06:40 08:00 08:24 08:27 Temp 36.8 Pulse 96 Pulse Ox 96 98 O2 Delivery Room Air Room Air 06/01/20 00:00 Intake Total 950 ml Output Total 1500 ml Balance -550 ml Weight (Pounds): 280 Weight (Ounces): 0.0 Weight (Calculated Kilograms): 127.526460 Side: right Condition: DP/PT pulses palpable, extremity w/d/p Bruising: mild bruising Constitutional: appears stated age, AAO x 3, well-developed, well-nourished Respiratory: chest is bilaterally symmetric, lungs clear to auscultation, rhonchi (scattered) Cardiovascular: regular rate-rhythm, S1 and S2 Gastrointestional: tender, soft, audible bowel sounds Extremities: no lower extremity edema bilateral Neurologic/Psychiatric: grossly intact (moves all extremities) Skin: normal color; No rash, No rash on exposed areas, No ulcerations on exposed areas Results/Procedures: Labs Laboratory Tests 06/01/20 03:00: White Blood Count 10.0, Red Blood Count 3.81, Hemoglobin 11.6, Hematocrit 37, Mean Corpuscular Volume 96, Mean Corpuscular Hemoglobin 30, Mean Corpuscular Hemoglobin Concent 32, Red Cell Distribution Width 14.2, Platelet Count 224, Mean Platelet Volume 11.2, Immature Granulocyte % (Auto) 0, Neutrophils (%) (Au to) 64, Lymphocytes (%) (Auto) 27, Monocytes (%) (Auto) 5, Eosinophils (%) (Auto) 3, Basophils (%) (Auto) 0, Neutrophils # (Auto) 6.4, Lymphocytes # (Auto) 2.7, Monocytes # (Auto) 0.5, Eosinophils # (Auto) 0.3, Basophils # (Auto) 0.0, Immature Granulocyte # (Auto) 0.0 06/01/20 03:30: Sodium Level 136, Potassium Level 3.7, Chloride Level 106, Carbon Dioxide Level 21, Anion Gap 9, Blood Urea Nitrogen 17, Creatinine 1.27, Estimat Glomerular Filtration Rate 46, BUN/Creatinine Ratio 13, Glucose Level 101, Calcium Level 8.4L, Phosphorus Level 3.0, Magnesium Level 2.1 Microbiology 05/29/20 MRSA Screen - Final, Complete MRSA not isolated Laboratory Tests 05/31/20 03:24 06/01/20 03:00 06/01/20 03:30 A/P: Assessment: Severe hypertension with hypertensive cardiovascular disease SOB, likely due to ac diastolic CHF due to uncontrolled hypertension Minimal troponin elevation: type 2 AL due to uncontrolled hypertension KYM-[id number] probably due to uncontrolled hypertension Card cath and renal a angio on 05/31/20: no significant CAD, LVEDP 36 mmHg, LVEF 60-65%, no renal artery stenosis Echocardiogram of May [address] Vincent showed wall thickness mod to severely increased. Concentric hypertrophy. LVEF 45-50%. Grade 1 diastolic dy sfunction. PASP 35-40 mmHg Tobaccoism - cessation advised Sleep apnea suspected (obesity and hypertension) Plan: We again reviewed the results of her CV w/u during this hospitalization We discussed her med regimen, its rationale, and potential side effects We advised compliance and close outpt f/u Sleep studies advised as outpt Advise smoking cessation Advise BMP and Mag level next week Questions answered. She understands and states she will comply ALEX ODONNELL MD FACP FACC CCDS Jun 01, 2020 10:20
== END 2020-06-01 09:52 | disposition home or self-care (01) | DRG 280 ==
LOC: EDUNIT# 20:49 → ER 20:51 → ICU 23:23 → UNDOADMIN 23:23 → UNDODISIN 06-01 09:52
PROVIDERS: ADMIT Family Medicine; ATTEND Family Medicine
PROC: 4A023N7 Measurement of Cardiac Sampling and Pressure, Left Heart, Percutaneous Approach (ICD-10-PCS; principal; 2020-05-31)
PROC: B2111ZZ Fluoroscopy of Multiple Coronary Arteries using Low Osmolar Contrast (ICD-10-PCS; 2020-05-31)
PROC: B2151ZZ Fluoroscopy of Left Heart using Low Osmolar Contrast (ICD-10-PCS; 2020-05-31)
PROC: B4101ZZ Fluoroscopy of Abdominal Aorta using Low Osmolar Contrast (ICD-10-PCS; 2020-05-31)
DX: I16.9 Hypertensive crisis, unspecified (principal); I21.A1 Myocardial infarction type 2; I50.31 Acute diastolic (congestive) heart failure; N17.9 Acute kidney failure, unspecified; Z68.43 Body mass index [BMI] 50.0-59.9, adult; F17.210 Nicotine dependence, cigarettes, uncomplicated; E66.9 Obesity, unspecified; E87.6 Hypokalemia; Z20.822 Contact with and (suspected) exposure to COVID-19; I11.0 Hypertensive heart disease with heart failure; G47.30 Sleep apnea, unspecified; Z82.49 Family history of ischemic heart disease and other diseases of the circulatory system; Z79.1 Long term (current) use of non-steroidal anti-inflammatories (NSAID); Z88.6 Allergy status to analgesic agent
CPT/HCPCS: 36415; 71045; 75625; 76770; 80048; 80053; 81000; 82384; 83615; 83735; 83874; 84100; 84145; 84443; 84484; 85007; 85025; 85027; 85045; 85055; 85379; 85610; 85730; 86141; 87081; 87635; 93005; 93041; 93306; 93458; 93975

== ENCOUNTER → 2020-06-10 | Outpatient (CLI) | payer OTHER ==
[~2020-06-10] MED LIST changes: +AMLO-250 PO; +AMLO-251 PO; +CARV25TA PO; +DOXA4TAB2 PO; +HYDR-3924 PO; +IBUP-2473 PO; +NICO1PAT38 TD; +TRIA1TAB5 PO
[2020-06-10 15:19] LABS: POTASSIUM 3.8 MMOL/L (3.6-5.0)
[2020-06-10 15:20] LABS: CALCIUM 9.5 MG/DL (8.5-10.1)
[2020-06-10 15:25] LABS: CREATININE SERUM 1.71 MG/DL (0.60-1.30)
[2020-06-10 15:27] LABS: MAGNESIUM 2.3 MG/DL (1.6-2.4)
== END ==
LOC: LAB 14:43
PROVIDERS: ATTEND Nurse Practitioner Family
DX: I15.0 Renovascular hypertension (principal)
CPT/HCPCS: 36415; 80048; 83735

== ENCOUNTER → 2020-12-09 | Outpatient (CLI) | payer OTHER ==
[~2020-12-09] MED LIST changes: -LISI10TA2 PO; +LISI10TA25 PO
--- NOTE | 2020-12-09 16:11 | Diagnostic Imaging Report ---
PROCEDURE: CT abdomen and pelvis without contrast. TECHNIQUE: Multiple contiguous axial images were obtained through the abdomen and pelvis without the use of intravenous contrast. Auto Exposure Controls were utilized during the CT exam to meet ALARA standards for radiation dose reduction. INDICATION: Diverticulitis. CORRELATION is made to prior CT from 03/01/2019. The lung bases are clear. The liver and gallbladder are unremarkable. There is no biliary ductal dilatation. The pancreas and spleen are unremarkable. No adrenal mass is identified. There are tiny nonobstructing calculi in the lower pole of the left kidney. Right kidney is unremarkable. Aorta is nonaneurysmal. The small and large bowel loops appear to be normal caliber. There is no obstruction. There is no free fluid or fluid collection. There is a cyst in the left adnexa measuring 3.6 cm, likely ovarian. Uterus appears to be absent or atrophic. The bladder is decompressed. IMPRESSION: 1. Tiny nonobstructing left renal calculi. 2. A 3.6 cm left ovarian cyst. 3. No other significant abnormality is detected. Dictated by: Dictated on workstation # [id number]
== END ==
LOC: RAD 15:45
PROVIDERS: ATTEND Nurse Practitioner Family
DX: N83.202 Unspecified ovarian cyst, left side (principal); K57.32 Diverticulitis of large intestine without perforation or abscess without bleeding
CPT/HCPCS: 74176

== ENCOUNTER → 2021-07-19 | Outpatient (CLI) | payer OTHER ==
--- NOTE | 2021-07-19 12:11 | Diagnostic Imaging Report ---
ABDOMEN/KUB 1VIEW INDICATION: Left flank pain COMPARISON: None available. TECHNIQUE: AP view of the abdomen FINDINGS: Nonobstructive bowel gas pattern. A small volume of colonic stool is present. There are no radiopaque stones overlying the renal fossa or along the expected course of the ureters. Normal regional skeleton. IMPRESSION: No radiopaque urinary tract calculi by radiography. Dictated by: Dictated on workstation # [id number]
--- NOTE | 2021-07-19 12:13 | Diagnostic Imaging Report ---
LUMBAR SPINE - 2-3 VIEWS INDICATION: Back pain COMPARISON: None available. TECHNIQUE: 3 views of lumbosacral spine FINDINGS: Normal alignment of the lumbar spine. No compression deformity within the vertebral bodies. No ankylosis in the vertebral body or posterior elements. SI joints are normal. No sacral insufficiency fracture. Mild degenerative disc disease is characterized by endplate spurring at L2-L3 and L3-L4. IMPRESSION: No acute osseous abnormality lumbar spine. Dictated by: Dictated on workstation # [id number]
== END ==
LOC: RAD 11:28
PROVIDERS: ATTEND Nurse Practitioner Family
DX: M54.50 Low back pain, unspecified (principal); R10.9 Unspecified abdominal pain
CPT/HCPCS: 72100; 74018

== ENCOUNTER → 2021-07-21 | Outpatient (CLI) | payer OTHER ==
--- NOTE | 2021-07-21 15:52 | Diagnostic Imaging Report ---
PROCEDURE: CT urinary tract, rule out kidney stone. TECHNIQUE: Multiple contiguous axial images were obtained through the abdomen and pelvis without the use of intravenous contrast. Auto Exposure Controls were utilized during the CT exam to meet ALARA standards for radiation dose reduction. INDICATION: Left-sided flank pain. COMPARISON: 12/09/2020. FINDINGS: The heart is unremarkable. The lung bases are clear. No evidence of obstructing calculi or hydronephrosis. No perinephric fat stranding. A nonobstructing calculus is seen in the inferior pole of the left kidney measuring 0.2 cm. No bladder calculi are seen. There is hepatic steatosis. Focal fatty sparing is seen in the gallbladder fossa. The spleen, pancreas, and adrenal glands have a normal appearance. There is no pathologically enlarged mesenteric or retroperitoneal adenopathy. The bowel loops are nondilated. The appendix is visualized in the right lower quadrant and has a normal appearance. There is no free fluid or free air. No acute osseous abnormalities. A small fat-containing periumbilical hernia is seen. There is no free air, loculated collection, or adenopathy in the pelvis. IMPRESSION: 1. Nonobstructing calculus in the inferior pole of the left kidney measuring 0.2 cm. No obstructing calculi or hydronephrosis. 2. Hepatic steatosis. Dictated by: Dictated on workstation # [id number]
== END ==
LOC: RAD 15:30
PROVIDERS: ATTEND Nurse Practitioner Family
DX: N20.0 Calculus of kidney (principal); K76.0 Fatty (change of) liver, not elsewhere classified; E79.0 Hyperuricemia without signs of inflammatory arthritis and tophaceous disease
CPT/HCPCS: 74176

== ENCOUNTER → 2021-07-26 | Outpatient (CLI) | payer OTHER ==
--- NOTE | 2021-07-26 12:20 | Diagnostic Imaging Report ---
PROCEDURE: US Renal Bilateral. TECHNIQUE: Multiple real-time grayscale images were obtained over the kidneys in various projections bilaterally. INDICATION: Chronic kidney disease. Correlated with abdominal pelvic CT 07/21/2021. FINDINGS: The right kidney measured 11 cm. Cortical thickness and echotexture was normal. No echogenic or shadowing stone. No solid or cystic mass. No hydronephrosis. No subcapsular or perinephric collection. The left kidney measured 10.4 cm and contains a tiny echogenic focus of approximately 6 mm in the lower pole believed to be the nonobstructing calculus present on the correlative CT. No hydronephrosis. No perinephric collection or subcapsular abnormality. There is patency of the bilateral ureteral jets confirmed with color Doppler evaluation of the unremarkable appearing urinary bladder. IMPRESSION: Nonobstructing intrarenal left kidney stone, the unobstructed kidneys and urinary bladder sonographically appeared otherwise normal. Dictated by: Dictated on workstation # [id number]
== END ==
LOC: RAD 11:00
PROVIDERS: ATTEND Nurse Practitioner Family
DX: N20.0 Calculus of kidney (principal); N18.32 Chronic kidney disease, stage 3b
CPT/HCPCS: 76770

== ENCOUNTER → 2021-09-20 | Outpatient (CLI) | payer OTHER ==
--- NOTE | 2021-09-20 14:46 | Diagnostic Imaging Report ---
INDICATION: LT KNEE PAIN/SWELLING COMPARISON: None. FINDINGS: 3 views of the left knee joint demonstrate no acute fracture or dislocation. No focal osseous lesions are seen. Small suprapatellar joint effusion is noted. The surrounding soft tissue structures are unremarkable. There are no radiopaque foreign bodies. IMPRESSION: 1. Small suprapatellar joint effusion. Otherwise, unremarkable radiographic exam of the left knee joint. Dictated by: Dictated on workstation # [id number]
== END ==
LOC: RAD 12:47
PROVIDERS: ATTEND Nurse Practitioner Family
DX: M25.562 Pain in left knee (principal); M25.462 Effusion, left knee
CPT/HCPCS: 73562

== ENCOUNTER → 2021-10-12 | Outpatient (CLI) | payer OTHER | LOC: RAD 14:00 | PROVIDERS: ATTEND Nurse Practitioner Family | DX: M25.562 Pain in left knee (principal) ==

== ENCOUNTER → 2023-03-05 | Outpatient (CLI) | payer OTHER ==
[~2023-03-05] MED LIST changes: +POTA-330 PO; -POTA-51 PO
[2023-03-05 17:08] LABS: ABSOLUTE RETIC # 80 10e9/uL (24-90); BASOPHILS # (AUTO) 0.1 10^3/uL (0.0-0.1); BASOPHILS % (AUTO) 1 % (0-10); EOSINOPHILS # (AUTO) 0.4 10^3/uL (0.0-0.3); EOSINOPHILS % (AUTO) 3 % (0-10); HEMATOCRIT 40 % (35-52); HEMOGLOBIN 14.3 g/dL (11.5-16.0); LYMPHOCYTES # (AUTO) 5.3 10^3/uL (1.0-4.0); LYMPHOCYTES % (AUTO) 43 % (12-44); MEAN CORPUSCULAR HEMOGLOBIN 32 pg (25-34); MEAN CORPUSCULAR HGB CONC 36 g/dL (32-36); MEAN CORPUSCULAR VOLUME 89 fL (80-99); MONOCYTES # (AUTO) 0.5 10^3/uL (0.0-1.0); MONOCYTES % (AUTO) 4 % (0-12); NEUTROPHILS # (AUTO) 6.1 10^3/uL (1.8-7.8); NEUTROPHILS % (AUTO) 49 % (42-75); PLATELET COUNT 277 10^3/uL (130-400); RETICULOCYTE % 1.77 % (0.50-2.40); WHITE BLOOD COUNT 12.4 10^3/uL (4.3-11.0)
[2023-03-05 17:21] LABS: ALBUMIN 4.1 GM/DL (3.2-4.5)
[2023-03-05 17:22] LABS: CALCIUM 9.4 MG/DL (8.5-10.1)
[2023-03-05 17:23] LABS: TOTAL PROTEIN 7.4 GM/DL (6.4-8.2)
[2023-03-05 17:25] LABS: BILIRUBIN,TOTAL 0.5 MG/DL (0.1-1.0)
[2023-03-05 17:27] LABS: CREATININE SERUM 1.8 MG/DL (0.60-1.30)
[2023-03-05 18:13] LABS: EOSINOPHILS % (MANUAL) 8 %; LYMPHOCYTES % (MANUAL) 35 %; MONOCYTES % (MANUAL) 2 %; NEUTROPHILS % (MANUAL) 55 %
[2023-03-05 18:14] LABS: RBC MORPH NORMAL
== END ==
LOC: LAB 16:33
PROVIDERS: ATTEND Nurse Practitioner Family
DX: D72.829 Elevated white blood cell count, unspecified (principal)
CPT/HCPCS: 36415; 80053; 85007; 85027; 85045; 85055